=== PATIENT | female | born 1945 | race Caucasian/White ===

== ENCOUNTER 2019-02-10 21:28 | Emergency (ER) | payer MEDICARE ==
[2019-02-10] MEDS ORDERED: MORPHINE SULFATE 4 MG INJ IV ONE (22:24)
[2019-02-10] MEDS ORDERED: Zofran 4 MG/2 ML VIAL IV ONE (22:24)
[2019-02-10] MEDS ORDERED: Sodium Chloride 0.9% 1000 ML 1,000 ML IV SCH (22:30)
[2019-02-10] MEDS ORDERED: MORPHINE SULFATE 4 MG INJ ONE (22:33)
[2019-02-10] MEDS ORDERED: Zofran 4 MG/2 ML VIAL ONE (22:33)
[2019-02-10] MEDS ORDERED: Sodium Chloride 0.9% 1000 ML 1,000 ML ONE (22:33)
[2019-02-10 22:35] LABS: BASOPHIL % 0.2 % (0.0-0.4); Basophil (Absolute #) 0.03 (0-0.4); Eosinophil % 2.4 % (0.00-5.0); Eosinophil (Absolute #) 0.36 (0-0.5); Granulocyte Absolute (ANC) 10.72 (1.4-6.9); Hematocrit 45.7 % (35-47); Hemoglobin 14.4 gm/dl (12.0-16.0); Lymphocyte (Absolute #) 3.01 (1.0-4.6); Lymphocytes % 19.7 % (24.0-44.0); Mean Cell Volume 96.8 fl (78-100); Mean Corpuscular Hemoglobin 30.5 pg (26-32); Mean Corpuscular Hgb Concent. 31.5 g/dl (32-36); Mean Platelet Volume 10.9 fl (6-9.5); Monocyte (Absolute #) 1.17 (0.0-1.3); Monocytes % 7.7 % (0.0-12.0); Platelet Count 269 K/mm3 (150-450); Red Blood Count 4.72 M/mm3 (4.1-5.4); Red Cell Distribution Width 14.3 % (11.5-14.0); White Blood Count 15.3 K/mm3 (4.0-10.5)
[2019-02-10 22:39] LABS: AMYLASE 250 U/L (30-110); LIPASE 429 U/L (23-300)
--- NOTE | 2019-02-10 23:09 | ERPHSYRPT ---
- History of Present Illness Time Seen by Provider: 02/10/19 22:00 Historian: patient Exam Limitations: clinical condition Patient Subjective Stated Complaint: pt states she has been having lt side abd pain for approx 1 week. pain has been worse tonight. states in last 5 days she has had one hard, small bm yesterday. Triage Nursing Assessment: pt alert and oriented, asnwers questions approp. pt ambulatory with dteady gait noted. respirations nonlabored with lungs cta. abd soft and nontender to light palpation. bowel sounds hypo. Physician History: PATIENT COMPLAINS OF ACUTE ONSET OF LEFT SIDED ABDOMINAL PAIN X 24 HOURS ASSOCIATED EMESIS X 6 EPISODES. DENIES DIARRHEA, FEVER, CHILLS, URINARY SYMPTOMS , DIARRHEA. HAS CONSTIPATION X 3 DAYS. Timing/Duration: day(s) Activities at Onset: none Quality: sharpness, stabbing Abdominal Pain Onset Location: LUQ, suprapubic Pain Radiation: no radiation Severity of Pain-Max: moderate Severity of Pain-Current: moderate Modifying Factors: Improves With: eating Associated Symptoms: nausea, vomiting Previous symptoms: no prior history Allergies/Adverse Reactions: cephalexin [From Keflex] Allergy (Verified 02/10/19 21:59) Penicillins Allergy (Verified 02/10/19 21:59) Hives Home Medications: Alendronate Sodium 70 mg [Fosamax 70 MG] 70 mg PO Q7D@0600 04/21/14 [ History] Aspirin 81 gm Chew [Baby Aspirin 81 mg Chew] 81 mg PO UD 04/21/14 [History ] Lansoprazole [Prevacid] 15 mg PO DAILY 04/21/14 [History] Pravastatin Sodium 20 mg PO DAILY 04/21/14 [History] Tramadol HCl 50 mg [Ultram 50 mg] 50 mg PO Q6HPRN 04/21/14 [History] Metoclopramide HCl 10 mg [Reglan 10 MG] 10 mg PO HS 01/08/16 [History] Hx Tetanus, Diphtheria Vaccination/Date Given: No (unknown) Hx Influenza Vaccination/Date Given: No Hx Pneumococcal Vaccination/Date Given: No Immunizations Up to Date: No - Review of Systems Constitutional: No Fever, No Chills Eyes: No Symptoms Ears, Nose, & Throat: No Symptoms Respiratory: No Symptoms, No Cough, No Dyspnea Cardiac: No Symptoms, No Chest Pain, No Edema, No Syncope Abdominal/Gastrointestinal: Abdominal Pain, Nausea, Vomiting, No Diarrhea Genitourinary Symptoms: No Symptoms, No Dysuria Musculoskeletal: No Symptoms, No Back Pain, No Neck Pain Skin: No Rash Neurological: No Dizziness, No Focal Weakness, No Sensory Changes Psychological: No Symptoms Endocrine: No Symptoms All Other Systems: Reviewed and Negative - Past Medical History Pertinent Past Medical History: Yes Neurological History: No Pertinent History ENT History: Other Cardiac History: High Cholesterol, Hypertension Respiratory History: No Pertinent History Endocrine Medical History: No Pertinent History Musculoskeletal History: Arthritis, Fractures, Osteoporosis GI Medical History: GERD History: No Pertinent History Psycho-Social History: Depression Female Reproductive Disorders: No Pertinent History Other Medical History: [place], ear drainage, tubes in ears, hiatal hernia - Past Surgical History Past Surgical History: Yes Neuro Surgical History: No Pertinent History Cardiac: No Pertinent History Respiratory: No Pertinent History Gastrointestinal: No Pertinent History Genitourinary: No Pertinent History Musculoskeletal: Orthopedic Surgery Female Surgical History: Section, Tubal Ligation Other Surgical History: right wrist repair - Social History Smoking Status: Former smoker Exposure to second hand smoke: No Drug Use: none Patient Lives Alone: No - Nursing Vital Signs Nursing Vital Signs: Initial Vital Signs Temperature 98.0 F 02/10/19 21:41 Pulse Rate 66 02/10/19 21:41 Respiratory Rate 20 02/10/19 21:41 Blood Pressure 133/65 02/10/19 21:41 O2 Sat by Pulse Oximetry 98 02/10/19 21:41 Pain Scale Pain Intensity 0 - Physical Exam General Appearance: no apparent distress, alert Eye Exam: PERRL/EOMI, eyes nml inspection Ears, Nose, Throat Exam: normal ENT inspection, pharynx normal, moist mucous membranes Neck Exam: normal inspection, non-tender, supple, full range of motion Respiratory Exam: normal breath sounds, lungs clear, No respiratory distress Cardiovascular Exam: regular rate/rhythm, normal heart sounds Gastrointestinal/Abdomen Exam: soft, normal bowel sounds, No tenderness (LEFT LOWER QUADRANT TENDERNESS, NO GUARDING), No mass Rectal Exam: normal exam, normal rectal tone Back Exam: normal inspection, normal range of motion, No CVA tenderness, No vertebral tenderness Extremity Exam: normal inspection, normal range of motion, pelvis stable Neurologic Exam: alert, oriented x 3, cooperative, normal mood/affect, nml cerebellar function, sensation nml, No motor deficits Skin Exam: normal color, warm, dry SpO2 Interpretation: normal SpO2: 94 - CT Exams Abdomen/Pelvis CT Interpretation: Tele-radiologist Report, Normal Appendix (NO ACUTE ABNORMALITY, NO CALIFIED STONES OR DUCTAL DILATION, NO HYDRONEPHROSIS, BILATERAL CYST OF KIDNEYS. COLONIC DIVERTICULOSIS WITHOUT CT EVIDENCE OF DIVERTICULITIS) Ordered Tests: Active Orders 24 hr Category Date Time Status Clean Catch Urine Specimen STAT Care 02/10/19 22:24 Active Enema STAT Care 02/11/19 01:35 Ordered IV Insertion STAT Care 02/10/19 22:24 Active ABDOMEN AND PELVIS W/0 CONTRAS [CT] Stat Exams 02/10/19 22:25 Taken AMYLASE Stat Lab 02/10/19 22:34 Completed BLOOD CULTURE Stat Lab 02/10/19 23:09 Received CBC W DIFF Stat Lab 02/10/19 22:34 Completed CMP Stat Lab 02/10/19 23:44 Completed CULTURE,URINE Stat Lab 02/10/19 23:19 Received LIPASE Stat Lab 02/10/19 22:34 Completed Occult Blood, Other Screening Stat Lab 02/10/19 22:25 Ordered UA W/RFX UR CULTURE Stat Lab 02/10/19 23:19 Completed Medication Summary Generic Name Dose Route Start Last Admin Trade Name Freq PRN Reason Stop Dose Admin Sodium Chloride 1,000 mls @ 200 mls/hr 02/10/19 22:30 02/10/19 22:39 Sodium Chloride 0.9% 1000 Ml IV 03/12/19 22:29 200 mls/hr .Q5H MATTHIEU Administration Discontinued Medications Generic Name Dose Route Start Last Admin Trade Name Freq PRN Reason Stop Dose Admin Morphine Sulfate 4 mg 02/10/19 22:24 02/10/19 22:39 Morphine Sulfate 4 Mg Inj IV 02/10/19 22:25 4 mg STAT ONE Administration Morphine Sulfate Confirm 02/10/19 22:33 Morphine Sulfate 4 Mg Inj Administered 02/10/19 22:34 Dose 4 mg .ROUTE .STK-MED ONE Ondansetron HCl 4 mg 02/10/19 22:24 02/10/19 22:39 Zofran 4 Mg/2 Ml Vial IV 03/20/19 22:25 4 mg STAT ONE Administration Ondansetron HCl Confirm 02/10/19 22:33 Zofran 4 Mg/2 Ml Vial Administered 02/10/19 22:34 Dose 4 mg .ROUTE .STK-MED ONE Lab/Rad Data: Laboratory Result Diagrams 02/10/19 22:34 02/10/19 23:44 Laboratory Results 02/10/19 02/10/19 02/10/19 Range/Units 23:44 23:19 22:34 WBC (4.0-10.5) K/mm3 RBC (4.1-5.4) M/mm3 Hgb (12.0-16.0) gm/dl Hct (35-47) % MCV (78-100) fl MCH (26-32) pg MCHC (32-36) g/dl RDW (11.5-14.0) % Plt Count (150-450) K/mm3 MPV (6-9.5) fl Gran % (36.0-66.0) % Eos # (Auto) (0-0.5) Absolute Lymphs (auto) (1.0-4.6) Absolute Monos (auto) (0.0-1.3) Lymphocytes % (24.0-44.0) % Monocytes % (0.0-12.0) % Eosinophils % (0.00-5.0) % Basophils % (0.0-0.4) % Absolute Granulocytes (1.4-6.9) Basophils # (0-0.4) Sodium 142 (137-145) mmol/L Potassium 3.8 (3.5-5.1) mmol/L Chloride 104 (98-107) mmol/L Carbon Dioxide 26 (22-30) mmol/L Anion Gap 15.3 H (5-15) MEQ/L BUN 21 H (7-17) mg/dL Creatinine 1.24 H (0.52-1.04) mg/dL Estimated GFR 44.7 ML/MIN Glucose 132 H (74-106) mg/dL Calcium 9.2 (8.4-10.2) mg/dL Total Bilirubin 0.40 (0.2-1.3) mg/dL AST 28 (14-36) U/L ALT 19 (0-35) U/L Alkaline Phosphatase 72 (38-126) U/L Serum Total Protein 7.2 (6.3-8.2) g/dL Albumin 4.0 (3.5-5.0) g/dL Amylase 250 H (30-110) U/L Lipase 429 H (23-300) U/L Urine Color YELLOW (YELLOW) Urine Appearance CLEAR (CLEAR) Urine pH 6.0 (5-6) Ur Specific [place] 1.008 (1.005-1.025) Urine Protein NEGATIVE (Negative) Urine Ketones NEGATIVE (NEGATIVE) Urine Blood SMALL (0-5) [place]/ul Urine Nitrite NEGATIVE (NEGATIVE) Urine Bilirubin NEGATIVE (NEGATIVE) Urine Urobilinogen NEGATIVE (0-1) mg/dL Ur Leukocyte Esterase SMALL (NEGATIVE) Urine WBC (Auto) 3-5 (0-5) /HPF Urine RBC (Auto) 0-2 (0-2) /HPF U Epithel Cells (Auto) NONE (FEW) /HPF Urine Bacteria (Auto) NONE (NEGATIVE) /HPF Urine Mucus (Auto) SLIGHT (NEGATIVE) /HPF Urine Culture Reflexed YES (NO) Urine Glucose NEGATIVE (NEGATIVE) mg/dL 02/10/19 Range/Units 22:34 WBC 15.3 H (4.0-10.5) K/mm3 RBC 4.72 (4.1-5.4) M/mm3 Hgb 14.4 (12.0-16.0) gm/dl Hct 45.7 (35-47) % MCV 96.8 (78-100) fl MCH 30.5 (26-32) pg MCHC 31.5 L (32-36) g/dl RDW 14.3 H (11.5-14.0) % Plt Count 269 (150-450) K/mm3 MPV 10.9 H (6-9.5) fl Gran % 70.0 H (36.0-66.0) % Eos # (Auto) 0.36 (0-0.5) Absolute Lymphs (auto) 3.01 (1.0-4.6) Absolute Monos (auto) 1.17 (0.0-1.3) Lymphocytes % 19.7 L (24.0-44.0) % Monocytes % 7.7 (0.0-12.0) % Eosinophils % 2.4 (0.00-5.0) % Basophils % 0.2 (0.0-0.4) % Absolute Granulocytes 10.72 H (1.4-6.9) Basophils # 0.03 (0-0.4) Sodium (137-145) mmol/L Potassium (3.5-5.1) mmol/L Chloride (98-107) mmol/L Carbon Dioxide (22-30) mmol/L Anion Gap (5-15) MEQ/L BUN (7-17) mg/dL Creatinine (0.52-1.04) mg/dL Estimated GFR ML/MIN Glucose (74-106) mg/dL Calcium (8.4-10.2) mg/dL Total Bilirubin (0.2-1.3) mg/dL AST (14-36) U/L ALT (0-35) U/L Alkaline Phosphatase (38-126) U/L Serum Total Protein (6.3-8.2) g/dL Albumin (3.5-5.0) g/dL Amylase (30-110) U/L Lipase (23-300) U/L Urine Color (YELLOW) Urine Appearance (CLEAR) Urine pH (5-6) Ur Specific [place] (1.005-1.025) Urine Protein (Negative) Urine Ketones (NEGATIVE) Urine Blood (0-5) [place]/ul Urine Nitrite (NEGATIVE) Urine Bilirubin (NEGATIVE) Urine Urobilinogen (0-1) mg/dL Ur Leukocyte Esterase (NEGATIVE) Urine WBC (Auto) (0-5) /HPF Urine RBC (Auto) (0-2) /HPF U Epithel Cells (Auto) (FEW) /HPF Urine Bacteria (Auto) (NEGATIVE) /HPF Urine Mucus (Auto) (NEGATIVE) /HPF Urine Culture Reflexed (NO) Urine Glucose (NEGATIVE) mg/dL - Progress Progress: improved Progress Note: 02/10/19 23:58 IV NORMAL SALINE 200ML/HR, ZOFRAN 4MG, MORPHINE 4MG IV, PATIENT ADMINISTERED ZOFRAN 4MG, AND ZOFRAN 4MG 02/11/19 01:43 ADMINISTERED SOAP EMEMA Counseled pt/family regarding: lab results, diagnosis, need for follow-up, rad results - Departure Time of Disposition: 02:30 Departure Disposition: Home Clinical Impression: ACUTE EMESIS, CONSTIPATION Condition: Stable Critical Care Time: No Critical Care Time(excluding separately billable procedures): 30-74 minutes Referrals: KAYLA RODAS MD [Primary Care Provider] - Additional Instructions: CONTINUE ALL CURRENT MEDICATIONS. FOLLOWUP WITH YOUR PRIMARY CARE PROVIDER IN 1 WEEK. ZOFRAN 4MG EVERY 6 HOURS NEEDED FOR NAUSEA. RETURN TO EMERGENCY FOR ONSET OF ABDOMINAL PAIN OR VOMITING. Prescriptions: Ondansetron ODT 4 MG [Zofran Odt 4 mg] 4 mg PO Q6H PRN PRN #10 tab.rapdis PRN Reason: Vomiting
[2019-02-10 23:31] LABS: Appearance CLEAR (CLEAR); Bilirubin NEGATIVE (NEGATIVE); Blood SMALL Ery/ul (0-5); Glucose NEGATIVE (NEGATIVE); Ketones NEGATIVE (NEGATIVE); Leukocyte Esterase SMALL (NEGATIVE); Mucus SLIGHT /HPF (NEGATIVE); Nitrite NEGATIVE (NEGATIVE); Protein,Urine Dip NEGATIVE (Negative); RBC 0-2 /HPF (0-2); Specific Gravity 1.008 (1.005-1.025); Urobilinogen NEGATIVE mg/dL (0-1)
[2019-02-10 23:54] LABS: ANION GAP 15.3 MEQ/L (5-15); BILIRUBIN,TOTAL 0.4 mg/dL (0.2-1.3); Calcium 9.2 mg/dL (8.4-10.2); Creatinine 1 1.24 mg/dL (0.52-1.04); Potassium 3.8 mmol/L (3.5-5.1); Total Protein 7.2 g/dL (6.3-8.2)
[2019-02-11 03:14] VITALS: BP 124/72; PULSE 64; O2SAT 96
--- NOTE | 2019-02-11 09:27 | XRAY ---
Indication: Left flank pain. Constipation. Elevated WBC, lipase, and amylase. History GERD. Multiple contiguous axial images obtained through the abdomen and pelvis without contrast as ordered. Comparison: None Lung bases hyperinflated with minimal atelectasis/scarring. No infiltrate or effusion. Heart is not enlarged. Large hiatal hernia with partial intrathoracic stomach. Stomach is distended with food/fluid. Noncontrasted stomach and bowel loops appear nonobstructed. Normal appendix. Scattered sigmoid diverticulosis without diverticulitis. A few bilateral renal cysts, largest right lower pole measuring 3 cm. No free fluid/air. Remaining liver, gallbladder, pancreas, spleen, adrenal glands, kidneys, ureters, bladder, and uterus appear unremarkable for noncontrast exam. Mild aortoiliac calcifications without AAA. Osseous structures intact with mild/moderate multilevel degenerative spondylosis and moderate levorotoscoliosis centered at L3. No ventral or inguinal hernias. Impression: 1. Large hiatal hernia with partial intrathoracic stomach. 2. Incidental sigmoid diverticulosis, bilateral renal cysts, degenerative spondylosis, and scoliosis. 3. Remaining CT abdomen/pelvis without contrast exam is negative. Comment: Preliminary interpretation was made by [facility]. No critical discrepancy. CT DI 14.92
== END 2019-02-11 03:21 | disposition home or self-care (01) ==
LOC: ED 21:28
DX: R11.10 Vomiting, unspecified (principal); K59.00 Constipation, unspecified; I10 Essential (primary) hypertension; Z79.899 Other long term (current) drug therapy; K21.9 Gastro-esophageal reflux disease without esophagitis; M81.0 Age-related osteoporosis without current pathological fracture; F32.9 Major depressive disorder, single episode, unspecified
CPT/HCPCS: 36000; 36415; 74176; 80053; 81001; 82150; 82272; 83690; 85025; 87040; 87086; 96360; 96361; 96374; 96375; 99284; J2270; J2405

== ENCOUNTER 2019-05-05 12:11 | Day surgery (SDC) | payer MEDICARE ==
[2019-05-05] MEDS ORDERED: Lactated Ringers 1,000 ML IV ONE (12:15)
[2019-05-05] MEDS ORDERED: Lactated Ringers 1,000 ML IV SCH (12:30)
[2019-05-05 15:23] VITALS: O2SAT 98
[2019-05-05 16:06] VITALS: BP 150/93; PULSE 57
--- NOTE | 2019-05-06 09:16 | OP ---
SURGERY DATE: 05/05/19 SURGERY TIME: 0 PREOPERATIVE DIAGNOSIS: 1. CHANGE IN BOWEL HABITS. 2. HISTORY OF POLYPS. POSTOPERATIVE DIAGNOSIS: 1. CHANGE IN BOWEL HABITS. 2. HISTORY OF POLYPS. 3. NORMAL COLONOSCOPY. PROCEDURE: 1. Colonoscopy to terminal ileum. SURGEON: Dr. Rakesh Palma. ANESTHESIA: MAC. SPECIMENS: None. COMPLICATIONS: None. ESTIMATED BLOOD LOSS: None. FINDINGS: Normal exam to terminal ileum with a few small diverticulum. PATIENT PRESENTATION: This patient presents with a recent change in her bowel habits with severe constipation. She also has a history of colon polyps. After discussing risks/benefits of colonoscopy, the patient wishes to proceed. DESCRIPTION OF PROCEDURE: The patient was brought to the endoscopy suite. Placed in the left lateral decubitus position. Placed under MAC anesthesia. Rectal exam was performed without any abnormality except for 1 small external hemorrhoid. The scope was gently advanced to the rectum. The scope was slowly advanced to the cecum. The appendiceal orifice and ileocecal valve were clearly identified. The bowel prep was quite good. The bowel was intubated. The terminal ileum appeared normal. The scope was then slowly withdrawn. The scope was withdrawn to the rectum. Retroflexion performed. Scope straightened. Rectum desufflated. Scope withdrawn. Patient was recovered and taken to PACU in stable condition. Plans for next colonoscopy in 5 years unless symptoms develop with her history of polyps.
== END 2019-05-05 16:10 | disposition home or self-care (01) ==
LOC: SDC 12:11
PROVIDERS: ATTEND Surgery
DX: K59.00 Constipation, unspecified (principal); K64.4 Residual hemorrhoidal skin tags; Z86.010 Personal history of colon polyps

== ENCOUNTER 2020-03-13 17:16 | Emergency (ER) | payer MEDICARE ==
--- NOTE | 2020-03-13 17:20 | ERPHSYRPT ---
- History of Present Illness Source: patient Exam Limitations: no limitations Timing/Duration: yesterday Severity: moderate Associated Symptoms: fever, No nausea, No vomiting, No abdominal pain, No shortness of breath, No chest pain Hx Tetanus, Diphtheria Vaccination/Date Given: No (unknown) Hx Influenza Vaccination/Date Given: No Hx Pneumococcal Vaccination/Date Given: No <DANIEL GARCIA - Last Filed: 03/13/20 19:08> <SHELLIE CUADRA - Last Filed: 03/13/20 21:17> - History of Present Illness Time Seen by Provider: 03/13/20 17:20 Physician History: This is a 75-year-old white female who has a history of hypertension and osteopenia who presents with anterior left lower extremity redness with pain. In addition, patient states that she has had a cough for a month. She was also noticed to have a low-grade fever today. Patient is a patient of Dr. Vargas. She was sent here for evaluation of her left lower extremity and management of her complaints. Denies chest pain. She denies shortness of breath. Patient denies nausea vomiting diarrhea. (DANIEL GARCIA) Allergies/Adverse Reactions: cephalexin [From Keflex] Allergy (Verified 04/14/19 13:01) Penicillins Allergy (Verified 04/14/19 13:01) Hives Home Medications: Alendronate Sodium 70 mg [Fosamax 70 MG] 70 mg PO Q7D@0600 04/21/14 [ History] Aspirin 81 gm Chew [Baby Aspirin 81 mg Chew] 81 mg PO UD 04/21/14 [History ] Pravastatin Sodium 20 mg PO DAILY 04/21/14 [History] Tramadol HCl 50 mg [Ultram 50 mg] 50 mg PO Q6HPRN 04/21/14 [History] Aspirin 81 gm Chew [Baby Aspirin 81 mg Chew] 81 mg PO UD 04/14/19 [History ] Docusate Sodium [Stool Softener] 100 mg PO DAILY 04/14/19 [History] Lisinopril 20 mg [Zestril 20 MG] 20 mg PO HS 04/14/19 [History] Multivit-Minerals/Folic/Ginkgo [One Daily For Women 50+ Adv Tb] 1 each PO DAILY 04/14/19 [History] Oxybutynin Chloride Xl 5 mg [Ditropan XL 5 MG] 5 mg PO DAILY 04/14/19 [ History] PANTOPRAZOLE 40 mg Tablet [Protonix 40MG Tablet] 40 mg PO BID 04/14/19 [ History] Travel Risk - International Travel Have you traveled outside of the country in past 3 weeks: No Have you or anyone close to you been diagnosed with or: No Do your reside in a community with a known COVID-19 case?: Yes If Yes where:: [facility] - Coronavirus Screening Has patient experienced Coronavirus symptoms: No <DANIEL GARCIA - Last Filed: 03/13/20 19:08> - Review of Systems Constitutional: Fever Eyes: No Symptoms Ears, Nose, & Throat: No Symptoms Respiratory: Cough (Mild cough for a month) Cardiac: No Symptoms Abdominal/Gastrointestinal: No Symptoms Genitourinary Symptoms: No Symptoms Musculoskeletal: No Symptoms Skin: No Symptoms Neurological: No Symptoms Psychological: No Symptoms Endocrine: No Symptoms Hematologic/Lymphatic: No Symptoms Immunological/Allergic: No Symptoms All Other Systems: Reviewed and Negative <DANIEL GARCIA - Last Filed: 03/13/20 19:08> - Past Medical History Pertinent Past Medical History: Yes Neurological History: No Pertinent History ENT History: Other Cardiac History: High Cholesterol, Hypertension Respiratory History: No Pertinent History Endocrine Medical History: No Pertinent History Musculoskeletal History: Arthritis, Fractures, Osteoporosis GI Medical History: GERD History: No Pertinent History Psycho-Social History: Depression Female Reproductive Disorders: No Pertinent History Other Medical History: [place], hiatal hernia - Past Surgical History Past Surgical History: Yes Neuro Surgical History: No Pertinent History Cardiac: No Pertinent History Respiratory: No Pertinent History Gastrointestinal: No Pertinent History Genitourinary: No Pertinent History Musculoskeletal: Orthopedic Surgery Female Surgical History: Section, Tubal Ligation Other Surgical History: right wrist repair. ear tubes- recontruction of inner ear - Social History Smoking Status: Former smoker Exposure to second hand smoke: No Drug Use: none Patient Lives Alone: No <DANIEL GARCIA - Last Filed: 03/13/20 19:08> - Physical Exam General Appearance: no apparent distress, alert, anxiety Eye Exam: PERRL/EOMI, eyes nml inspection Ears, Nose, Throat Exam: normal ENT inspection, moist mucous membranes Neck Exam: normal inspection, non-tender, supple, full range of motion Respiratory Exam: normal breath sounds, lungs clear, airway intact, No chest tenderness, No respiratory distress Cardiovascular Exam: regular rate/rhythm, normal heart sounds, normal peripheral pulses Gastrointestinal/Abdomen Exam: soft, normal bowel sounds, No tenderness Rectal Exam: not done Back Exam: normal inspection, normal range of motion, No CVA tenderness, No vertebral tenderness Extremity Exam: normal range of motion, pelvis stable, tenderness (Anterior left lower extremity along and around tibia there is redness warmth and tenderness. There is normal palpable pedal pulses on the left.) Neurologic Exam: alert, oriented x 3, cooperative, ccie II-XII nml as tested, normal mood/affect, nml cerebellar function, nml station & gait Skin Exam: warm, dry, other (See above. Cellulitis left lower extremity.) Lymphatic Exam: No adenopathy SpO2 Interpretation: borderline oxygenation O2 Delivery: Room Air <DANIEL GARCIA - Last Filed: 03/13/20 19:08> - Nursing Vital Signs Nursing Vital Signs: Initial Vital Signs Temperature 99.5 F 03/13/20 17:16 Pulse Rate 88 03/13/20 17:16 Respiratory Rate 18 03/13/20 17:16 Blood Pressure 113/63 03/13/20 17:16 O2 Sat by Pulse Oximetry 94 L 03/13/20 17:16 Pain Scale Pain Intensity 8 Ordered Tests: Active Orders 24 hr Category Date Time Status IV Insertion STAT Care 03/13/20 17:44 Active CHEST 1 VIEW (PORTABLE) Stat Exams 03/13/20 17:54 Taken CHEST WITH CONTRAST [CT] Stat Exams 03/13/20 18:56 Taken VENOUS UNILAT/LIMITED EXTREMIT [US] Stat Exams 03/13/20 18:58 Taken BLOOD CULTURE Stat Lab 03/13/20 18:15 Received CBC W DIFF Stat Lab 03/13/20 18:00 Completed CMP Stat Lab 03/13/20 18:00 Completed CULTURE,URINE Stat Lab 03/13/20 19:00 Received D-DIMER QUANTITATIVE Stat Lab 03/13/20 18:00 Completed Lactic Acid Stat Lab 03/13/20 18:00 Completed UA W/RFX UR CULTURE Stat Lab 03/13/20 19:00 Completed Medication Summary Discontinued Medications Generic Name Dose Route Start Last Admin Trade Name Luther PRN Reason Stop Dose Admin Sodium Chloride 1,000 mls @ 999 mls/hr 03/13/20 17:44 03/13/20 18:59 Sodium Chloride 0.9% 1000 Ml IV 03/13/20 18:44 Infused .Q1H1M STA Infusion Sodium Chloride Confirm 03/13/20 17:48 Sodium Chloride 0.9% 1000 Ml Administered 03/13/20 17:49 Dose 1,000 mls @ ud .ROUTE .STK-MED ONE Lab/Rad Data: Laboratory Result Diagrams 03/13/20 18:00 03/13/20 18:00 Laboratory Results 03/13/20 03/13/20 03/13/20 Range/Units 19:00 18:10 18:00 WBC (4.0-10.5) K/mm3 RBC (4.1-5.4) M/mm3 Hgb (12.0-16.0) gm/dl Hct (35-47) % MCV (78-100) fl MCH (26-32) pg MCHC (32-36) g/dl RDW (11.5-14.0) % Plt Count (150-450) K/mm3 MPV (7.5-11.0) fl Gran % (36.0-66.0) % Eos # (Auto) (0-0.5) Absolute Lymphs (auto) (1.0-4.6) Absolute Monos (auto) (0.0-1.3) Lymphocytes % (24.0-44.0) % Monocytes % (0.0-12.0) % Eosinophils % (0.00-5.0) % Basophils % (0.0-0.4) % Absolute Granulocytes (1.4-6.9) Basophils # (0-0.4) D-Dimer 1096 H* (215-500) ng/mL Sodium (137-145) mmol/L Potassium (3.5-5.1) mmol/L Chloride (98-107) mmol/L Carbon Dioxide (22-30) mmol/L Anion Gap (5-15) MEQ/L BUN (7-17) mg/dL Creatinine (0.52-1.04) mg/dL Estimated GFR ML/MIN Glucose (74-106) mg/dL Lactic Acid (0.4-2.0) Calcium (8.4-10.2) mg/dL Total Bilirubin (0.2-1.3) mg/dL AST (14-36) U/L ALT (0-35) U/L Alkaline Phosphatase (38-126) U/L Serum Total Protein (6.3-8.2) g/dL Albumin (3.5-5.0) g/dL Urine Color YELLOW (YELLOW) Urine Appearance CLEAR (CLEAR) Urine pH 8.0 (5-6) Ur Specific [place] 1.003 (1.005-1.025) Urine Protein NEGATIVE (Negative) Urine Ketones NEGATIVE (NEGATIVE) Urine Blood SMALL (0-5) [place]/ul Urine Nitrite NEGATIVE (NEGATIVE) Urine Bilirubin NEGATIVE (NEGATIVE) Urine Urobilinogen NEGATIVE (0-1) mg/dL Ur Leukocyte Esterase TRACE (NEGATIVE) Urine WBC (Auto) 11-15 (0-5) /HPF Urine RBC (Auto) 0-2 (0-2) /HPF U Epithel Cells (Auto) RARE (FEW) /HPF Urine Bacteria (Auto) NONE (NEGATIVE) /HPF Urine Culture Reflexed YES (NO) Urine Glucose NEGATIVE (NEGATIVE) mg/dL Influenza Type A Ag NEGATIVE (NEGATIVE) Influenza Type B Ag NEGATIVE (NEGATIVE) RSV (PCR) NEGATIVE (Negative) 03/13/20 03/13/20 03/13/20 Range/Units 18:00 18:00 18:00 WBC 14.0 H (4.0-10.5) K/mm3 RBC 4.21 (4.1-5.4) M/mm3 Hgb 12.4 (12.0-16.0) gm/dl Hct 39.7 (35-47) % MCV 94.3 (78-100) fl MCH 29.5 (26-32) pg MCHC 31.2 L (32-36) g/dl RDW 14.9 H (11.5-14.0) % Plt Count 260 (150-450) K/mm3 MPV 10.8 (7.5-11.0) fl Gran % 77.8 H (36.0-66.0) % Eos # (Auto) 0.35 (0-0.5) Absolute Lymphs (auto) 1.55 (1.0-4.6) Absolute Monos (auto) 1.16 (0.0-1.3) Lymphocytes % 11.1 L (24.0-44.0) % Monocytes % 8.3 (0.0-12.0) % Eosinophils % 2.5 (0.00-5.0) % Basophils % 0.3 (0.0-0.4) % Absolute Granulocytes 10.88 H (1.4-6.9) Basophils # 0.04 (0-0.4) D-Dimer (215-500) ng/mL Sodium 138 (137-145) mmol/L Potassium 4.1 (3.5-5.1) mmol/L Chloride 106 (98-107) mmol/L Carbon Dioxide 24 (22-30) mmol/L Anion Gap 12.6 (5-15) MEQ/L BUN 13 (7-17) mg/dL Creatinine 1.04 (0.52-1.04) mg/dL Estimated GFR 54.6 ML/MIN Glucose 102 (74-106) mg/dL Lactic Acid 1.1 (0.4-2.0) Calcium 9.0 (8.4-10.2) mg/dL Total Bilirubin 0.60 (0.2-1.3) mg/dL AST 27 (14-36) U/L ALT 11 (0-35) U/L Alkaline Phosphatase 98 (38-126) U/L Serum Total Protein 7.6 (6.3-8.2) g/dL Albumin 3.7 (3.5-5.0) g/dL Urine Color (YELLOW) Urine Appearance (CLEAR) Urine pH (5-6) Ur Specific [place] (1.005-1.025) Urine Protein (Negative) Urine Ketones (NEGATIVE) Urine Blood (0-5) [place]/ul Urine Nitrite (NEGATIVE) Urine Bilirubin (NEGATIVE) Urine Urobilinogen (0-1) mg/dL Ur Leukocyte Esterase (NEGATIVE) Urine WBC (Auto) (0-5) /HPF Urine RBC (Auto) (0-2) /HPF U Epithel Cells (Auto) (FEW) /HPF Urine Bacteria (Auto) (NEGATIVE) /HPF Urine Culture Reflexed (NO) Urine Glucose (NEGATIVE) mg/dL Influenza Type A Ag (NEGATIVE) Influenza Type B Ag (NEGATIVE) RSV (PCR) (Negative) <DANIEL GARCIA - Last Filed: 03/13/20 19:08> - Progress Counseled pt/family regarding: lab results, diagnosis, need for follow-up <SHELLIE CUADRA - Last Filed: 03/13/20 21:17> - Progress Progress Note: 03/13/20 19:08 I reviewed the patient history and condition and work-up pending with Dr. Shellie Cuadra at the time of shift change. He assuming care of this patient. (DANIEL GARCIA) 03/13/20 21:16 CTA of the chest was negative for pulmonary embolism. Left lower leg Doppler was negative. At this point time patient appears to have a cellulitis of the left lower leg. Will place patient on clindamycin going home. She will need a wound recheck with her PCP in 2 to 3 days. She should return here for any new or changing symptoms before then. (SHELLIE CUADRA) <DANIEL GARCIA - Last Filed: 03/13/20 19:08> - Departure Departure Disposition: Home Critical Care Time: No <SHELLIE CUADRA - Last Filed: 03/13/20 21:17> - Departure Clinical Impression: Cellulitis of left lower leg Condition: Stable Referrals: KAYLA VARGAS MD [Primary Care Provider] - Instructions: Contusion (DC) Prescriptions: Clindamycin HCl 150 mg [Cleocin 150 mg Capsule] 2 cap PO QID #56 capsule
[2020-03-13] MEDS ORDERED: Sodium Chloride 0.9% 1000 ML 1,000 ML IV STA (17:44)
[2020-03-13] MEDS ORDERED: Sodium Chloride 0.9% 1000 ML 1,000 ML ONE (17:48)
[2020-03-13 18:23] LABS: Absolute Neutrophil Ct (ANC) 10.88 (1.4-6.9); BASOPHIL % 0.3 % (0.0-0.4); Basophil (Absolute #) 0.04 (0-0.4); Eosinophil % 2.5 % (0.00-5.0); Eosinophil (Absolute #) 0.35 (0-0.5); Hematocrit 39.7 % (35-47); Hemoglobin 12.4 gm/dl (12.0-16.0); Lymphocyte (Absolute #) 1.55 (1.0-4.6); Lymphocytes % 11.1 % (24.0-44.0); Mean Cell Volume 94.3 fl (78-100); Mean Corpuscular Hemoglobin 29.5 pg (26-32); Mean Corpuscular Hgb Concent. 31.2 g/dl (32-36); Mean Platelet Volume 10.8 fl (7.5-11.0); Monocyte (Absolute #) 1.16 (0.0-1.3); Monocytes % 8.3 % (0.0-12.0); Neutrophil % 77.8 % (36.0-66.0); Platelet Count 260 K/mm3 (150-450); Red Blood Count 4.21 M/mm3 (4.1-5.4); Red Cell Distribution Width 14.9 % (11.5-14.0)
[2020-03-13 18:39] LABS: ALBUMIN 3.7 g/dL (3.5-5.0); ANION GAP 12.6 MEQ/L (5-15); BILIRUBIN,TOTAL 0.6 mg/dL (0.2-1.3); Creatinine 1 1.04 mg/dL (0.52-1.04); Potassium 4.1 mmol/L (3.5-5.1); Total Protein 7.6 g/dL (6.3-8.2)
[2020-03-13 18:46] LABS: INFLUENZA A NEGATIVE (NEGATIVE); INFLUENZA B NEGATIVE (NEGATIVE); RESPIRATORY SYNCTIAL VIRUS NEGATIVE (Negative)
[2020-03-13 19:36] LABS: Appearance CLEAR (CLEAR); Bilirubin NEGATIVE (NEGATIVE); Blood SMALL Ery/ul (0-5); Epithelial Cells RARE /HPF (FEW); Glucose NEGATIVE (NEGATIVE); Ketones NEGATIVE (NEGATIVE); Leukocyte Esterase TRACE (NEGATIVE); Nitrite NEGATIVE (NEGATIVE); Protein,Urine Dip NEGATIVE (Negative); RBC 0-2 /HPF (0-2); Specific Gravity 1.003 (1.005-1.025); Urobilinogen NEGATIVE mg/dL (0-1)
[2020-03-13 21:54] VITALS: BP 110/74; PULSE 85; O2SAT 96
--- NOTE | 2020-03-14 08:37 | XRAY ---
Indication: Left leg erythema and swelling. Two-dimensional sonogram and color Doppler imaging of the major venous vessels of the left leg was performed. Comparison: None No thrombus seen in the examined deep venous vessels of the left leg including greater saphenous vein. Veins demonstrate normal compressibility. Venous waveforms are normal with and without augmentation. Impression: Left leg negative for DVT. Comment: Preliminary report was given.
--- NOTE | 2020-03-14 08:49 | XRAY ---
Indication: Cough 1 month. Low-grade fever. Comparison: September 18, 2017. Portable chest less inflated with new left base infiltrate/atelectasis and enlarging large hiatal hernia. Remaining heart and lungs unremarkable. Bony thorax intact again with mild osteopenia, degenerative changes, and scoliosis.
--- NOTE | 2020-03-14 09:58 | XRAY ---
Indication: Cough and elevated d-dimer. Left leg cellulitis. Multiple contiguous axial images obtained through the chest using 80 cc Isovue 370 contrast and PE protocol. Comparison: None There is good opacification of the pulmonary arteries to include the lobar and segmental branches. No filling defect/pulmonary embolus. Heart is not enlarged. Aorta is mildly arteriosclerotic without aneurysm/dissection. No pathologic mediastinal/hilar lymphadenopathy. Large hiatal hernia with intrathoracic stomach. Examination of the lung parenchyma demonstrates left lower lobe subsegmental atelectasis and tiny bilateral lower lobe calcified granulomas. Elsewhere no suspicious pulmonary mass, infiltrate, or effusion. Bony thorax intact with minimal degenerative changes throughout the spine. Limited upper abdomen demonstrates partially visualized 1.8 cm left mid to lower renal cyst. Impression: 1. Negative pulmonary embolus. 2. Left lower lobe subsegmental atelectasis and evidence for old granulomatous disease. 3. Large hiatal hernia with intrathoracic stomach. 4. Incompletely visualized left renal cyst.
== END 2020-03-13 22:07 | disposition home or self-care (01) ==
LOC: ED 17:16
DX: L03.116 Cellulitis of left lower limb (principal); I10 Essential (primary) hypertension; M85.80 Other specified disorders of bone density and structure, unspecified site; R05 Cough; R50.9 Fever, unspecified; Z79.899 Other long term (current) drug therapy; E78.00 Pure hypercholesterolemia, unspecified; M81.0 Age-related osteoporosis without current pathological fracture; K21.9 Gastro-esophageal reflux disease without esophagitis; F32.9 Major depressive disorder, single episode, unspecified; K44.9 Diaphragmatic hernia without obstruction or gangrene
CPT/HCPCS: 36000; 36415; 71045; 71260; 80053; 81001; 83605; 85025; 85379; 87040; 87086; 87631; 93971; 96360; 99284

== ENCOUNTER 2020-08-02 13:17 | Day surgery (SDC) | payer MEDICARE ==
[~2020-08-02 13:17] MED LIST: DIPRIVAN 200 MG/20 ML IV ONE; Ketamine HCl 50 MG/ML ONE
[2020-08-02] MEDS ORDERED: Depo-Medrol 40 MG/ML IM ONE (13:18)
[2020-08-02] MEDS ORDERED: Sodium Chloride 0.9(Preservative Free) 10 ML IJ ONE (13:18)
--- NOTE | 2020-08-02 14:58 | XRAY ---
Indication: Left L4-S1 transforaminal SAE. Intraoperative fluoroscopy was provided for 23 seconds. 3 digital spot images submitted for interpretation demonstrates posterior needle tips projecting over the expected left L4 and L5 nerve roots. Small amount of contrast injected for needle tip placement. Correlate with intraoperative findings/report.
[2020-08-02] MEDS ORDERED: Lactated Ringers 1,000 ML IV ONE (15:12)
--- NOTE | 2020-08-03 10:15 | XRAY ---
23 seconds fluoroscopy time in surgery for left L4-S1 transforaminal SAE.
== END 2020-08-02 14:55 | disposition home or self-care (01) ==
LOC: SDC-PAIN 13:17
PROVIDERS: ATTEND Psychiatry & Neurology Pain Medicine
DX: M54.16 Radiculopathy, lumbar region (principal); I10 Essential (primary) hypertension; J43.9 Emphysema, unspecified; K21.9 Gastro-esophageal reflux disease without esophagitis; K44.9 Diaphragmatic hernia without obstruction or gangrene; M81.0 Age-related osteoporosis without current pathological fracture; Z79.899 Other long term (current) drug therapy
CPT/HCPCS: 64483; 64484; 72100; 77003; 99100; J1030; J2704; Q9966

== ENCOUNTER 2020-11-06 09:46 | Observation (INO) | payer MEDICARE ==
[2020-11-06 11:14] LABS: Absolute Neutrophil Ct (ANC) 6.39 (1.4-6.9); BASOPHIL % 0.7 % (0.0-0.4); Basophil (Absolute #) 0.07 (0-0.4); Eosinophil % 7.2 % (0.00-5.0); Eosinophil (Absolute #) 0.69 (0-0.5); Hematocrit 34.2 % (35-47); Hemoglobin 10.4 gm/dl (12.0-16.0); Lymphocyte (Absolute #) 1.42 (1.0-4.6); Lymphocytes % 14.9 % (24.0-44.0); Mean Cell Volume 100.3 fl (78-100); Mean Corpuscular Hemoglobin 30.5 pg (26-32); Mean Corpuscular Hgb Concent. 30.4 g/dl (32-36); Mean Platelet Volume 10.3 fl (7.5-11.0); Monocyte (Absolute #) 0.97 (0.0-1.3); Monocytes % 10.2 % (0.0-12.0); Platelet Count 371 K/mm3 (150-450); Red Blood Count 3.41 M/mm3 (4.1-5.4); Red Cell Distribution Width 14.5 % (11.5-14.0); White Blood Count 9.5 K/mm3 (4.0-10.5)
[2020-11-06 11:30] LABS: ALBUMIN 3.5 g/dL (3.5-5.0); ALKALINE PHOSPHATASE 94 U/L (38-126); ANION GAP 8.4 MEQ/L (5-15); BLOOD UREA NITROGEN 11 mg/dL (7-17); CHLORIDE 105 mmol/L (98-107); Carbon Dioxide 28 mmol/L (22-30); Creatinine 1 1.17 mg/dL (0.52-1.04); EST GLOMERULAR FILTRATION RATE 47.7 ML/MIN; Glucose 97 mg/dL (74-106); NT PRO BNP 441 pg/mL (0-1800); Potassium 3.9 mmol/L (3.5-5.1); SGOT/AST 20 U/L (14-36); SGPT/ALT 9 U/L (0-35); SODIUM 138 mmol/L (137-145)
[2020-11-06] MEDS ORDERED: Protonix 40MG Tablet PO SCH (11:30)
[2020-11-06] MEDS ORDERED: Zestril 20 MG PO SCH ×3 (11:30→22:00)
[2020-11-06] MEDS: DUONEB 0.5-3 MG/3 ml Neb IH SCH ×2 (11:39→17:10)
--- NOTE | 2020-11-06 12:09 | XRAY ---
Exam: AP upright portable chest film from 11/06/2020. Comparison: AP portable chest film from 03/13/2020. Indication: 75-year-old female with acute exacerbation of COPD; hypoxia. Findings: The transverse heart size appears within normal limits. A calcified, mildly tortuous descending thoracic aorta is seen. There is at least a moderate sized hiatal hernia seen behind the stomach representing no change. I again note mild elevation/eventration of the left hemidiaphragm as compared to the right hemidiaphragm. I believe there is some minimal obliquely oriented linear atelectasis at the left lung base. This is less pronounced as compared to 03/13/2020. The remainder of the lung lugo appears clear. No central vascular congestion is noted. No pneumothorax or pleural fluid is seen. I again note degenerative changes within the visualized spine with mild mid thoracic dextroscoliosis. The bones are demineralized. Impression: 1. Mild elevation/eventration of left hemidiaphragm with minimal streaky linear atelectasis at the left lung base. The atelectasis appears less pronounced as compared to 03/13/2020. 2. Moderately large retrocardiac hiatal hernia representing no change. 3. No air space infiltrates or other acute cardiopulmonary disease is seen.
[2020-11-06 12:17] LABS: TROPONIN < 0.012 ng/mL (0.000-0.034)
[2020-11-06] MEDS: ECOTRIN 81 MG PO SCH (13:25)
[2020-11-06] MEDS: solu-MEDROL 125 MG IV SCH ×2 (13:45→17:52)
[2020-11-06] MEDS: Levofloxacin 500MG/100ML D5W 500 MG/100 ML BAG IV SCH (13:45)
[2020-11-06] MEDS ORDERED: BABY ASPIRIN 81 MG CHEW PO SCH (14:15)
[2020-11-06] MEDS ORDERED: Ditropan XL 5 MG PO SCH ×2 (14:30→22:00)
[2020-11-06] MEDS: Sodium Chloride 0.9% 10 ML FLUSH Syringe IV PRN (15:09)
[2020-11-06] MEDS: ULTRAM 50 MG PO SCH ×2 (15:23→21:20)
--- NOTE | 2020-11-06 15:47 | XRAY ---
Exam: CT of the chest with IV contrast, per PE protocol from 11/06/2020. Total DLP: 384.18 mGy-cm Comparison: AP upright portable chest film from 11/06/[address] of the chest with IV contrast from 03/13/2020. Indication: 75-year-old female with elevated d-dimer of 1985 (normal range from 215-500 ng per ml), low oxygen saturation, cough for 6 weeks, acute exacerbation of COPD, rule out pulmonary embolus. Technique: Post-IV contrast axial images were obtained through the chest during automated injection of 80 cc of Isovue-370 contrast material, per PE protocol. Reconstructed coronal and sagittal images were created and reviewed. In addition, some axial MIP images were obtained as well. The pulmonary arteries are well-opacified and reveal no filling defects to suggest clot/emboli. No thoracic aortic dissection or aneurysm is seen. Some small probably reactive lymph nodes are seen within the bao representing no change. The heart size is normal without pericardial effusion. There is a large hiatal hernia containing much of the stomach and measuring 9.6 cm in width. This appears to be somewhat larger than that seen on 03/13/2021 when it measured 7.8 cm in width. I again see mild streaky subsegmental atelectasis at the posterior left lung base within the left lower lobe. This appears less pronounced as compared to 03/13/2020. I believe there are some mild emphysematous changes within both upper lung lugo. No air space infiltrates or dense consolidations are seen. There is no pneumothorax or pleural effusion. No suspicious soft tissue lung nodules are seen. The visualized upper abdomen reveals no significant abnormality. The adrenal glands appear unremarkable. Impression: 1. I see no evidence of pulmonary embolus. 2. Prior streaky subsegmental atelectasis at the posterior left lung base within the left lower lobe appears less pronounced as compared to 03/13/2020. No other acute lung disease is seen. 3. I believe there are mild emphysematous changes seen within both upper lung lugo. 4. I again see a large retrocardiac hiatal hernia which appears somewhat larger as compared to 03/13/2020.
[2020-11-06] MEDS: Protonix 40MG Tablet PO SCH (21:07)
[2020-11-06] MEDS: Sodium Chloride 0.9% 10 ML FLUSH Syringe IV SCH (21:08)
[2020-11-06] MEDS ORDERED: ZOCOR 20MG PO SCH (22:00)
[2020-11-06] MEDS ORDERED: Miralax Powder 17GM PACKET PO SCH (22:00)
[2020-11-07] MEDS: solu-MEDROL 125 MG IV SCH ×3 (00:05→12:30)
[2020-11-07] MEDS: DUONEB 0.5-3 MG/3 ml Neb IH SCH ×3 (01:35→13:04)
[2020-11-07] MEDS: Sodium Chloride 0.9% 10 ML FLUSH Syringe IV SCH (06:11)
[2020-11-07] MEDS: Sodium Chloride 0.9% 10 ML FLUSH Syringe IV PRN (06:12)
--- NOTE | 2020-11-07 08:22 | PCM.SSS ---
History of Present Illness - Chief Complaint Chief Complaint: ae copd,hypoxia History of Present Illness: is a 75 year old female who was admitted from the office with persistent cough, shortness of breath and hypoxia. she has had good oxygenation on room air since admission, was put on oxygen overnight but cough is imporved. d-dimer was elevated but CTA was negative for PE showed some scarring and large hiatal hernia, no pneumonia. treated with nebs, steroids and antibiotics, leroy ears to have a component of copd/reactive airway, on no MELODY at home, unable to actuate hfa with her hands with arthritis and tremor etc. - Review of Systems Constitutional: No Fever, No Chills Respiratory: Cough, Short Of Breath Cardiac: No Chest Pain, No Edema, No Syncope Abdominal/Gastrointestinal: No Abdominal Pain, No Nausea, No Vomiting, No Diarrhea Genitourinary Symptoms: No Dysuria Musculoskeletal: No Back Pain, No Neck Pain Skin: No Rash Neurological: No Dizziness, No Focal Weakness, No Sensory Changes All Other Systems: Reviewed and Negative Medications & Allergies Home Medications: Home Medication List Alendronate Sodium 70 mg [Fosamax 70 MG] 70 mg PO Q7D@0600 04/21/14 [History Confirmed 11/06/20] Pravastatin Sodium 20 mg PO DAILY 04/21/14 [History Confirmed 11/06/20] Tramadol HCl 50 mg [Ultram 50 mg] 50 mg PO Q6HPRN 04/21/14 [History Confirmed 11/06/20] Aspirin 81 gm Chew [Baby Aspirin 81 mg Chew] 81 mg PO UD 04/14/19 [History Confirmed 11/06/20] Lisinopril 20 mg [Zestril 20 MG] 20 mg PO HS 04/14/19 [History Confirmed 11/06/20] Multivit-Minerals/Folic/Ginkgo [One Daily For Women 50+ Adv Tb] 1 each PO DAILY 04/14/19 [History Confirmed 11/06/20] Oxybutynin Chloride Xl 5 mg [Ditropan XL 5 MG] 5 mg PO DAILY 04/14/19 [History Confirmed 11/06/20] PANTOPRAZOLE 40 mg Tablet [Protonix 40MG Tablet] 40 mg PO BID 04/14/19 [History Confirmed 11/06/20] Polyethylene Glycol 3350 17 gm [Miralax Powder 17GM PACKET] 17 gm PO HS 11/06/20 [History Confirmed 11/06/20] Albuterol/Ipratropium 3ml Neb* [DUONEB 0.5-3 MG/3 ml Neb] 3 ml IH Q6HRT #100 ampul.neb 11/07/20 [Rx] Levofloxacin [Levaquin] 500 mg PO DAILY #7 tablet 11/07/20 [Rx] Nebulizer and Compressor [[place] Choice Nebulizer] 1 each UD #1 each 11/07/20 [Rx] Prednisone 20 mg [Deltasone 20 mg] 20 mg PO UD #18 tablet 11/07/20 [Rx] Allergies/Adverse Reactions: Allergies Allergy/AdvReac Type Severity Reaction Status Date / Time cephalexin [From Keflex] Allergy Verified 04/14/19 13:01 Penicillins Allergy Hives Verified 04/14/19 13:01 - Past Medical History Past Medical History: Yes Neurological History: No Pertinent History ENT History: Other Cardiac History: High Cholesterol, Hypertension Respiratory History: No Pertinent History Endocrine Medical History: No Pertinent History Musculoskelatal History: Arthritis, Fractures, Osteoporosis GI Medical History: GERD History: No Pertinent History Pyscho-Social History: Depression Reproductive Disorders: No Pertinent History Comment: REDDING, hiatal hernia - Female History Hx Last Menstrual Period: post menopausal Are you now?: No - Past Surgical History Past Surgical History: Yes Neuro Surgical History: No Pertinent History Cardiac History: No Pertinent History Respiratory Surgery: No Pertinent History GI Surgical History: No Pertinent History Genitourinary Surgical Hx: No Pertinent History Musculskeletal Surgical Hx: Orthopedic Surgery Female Surgical History: Section, Tubal Ligation Other Surgical History: right wrist repair. ear tubes- recontruction of inner ear R - Social History Smoking Status: Former smoker Exposure to second hand smoke: No Alcohol: None Drug Use: none - Physical Exam Vital Signs: Vital Signs - 24 hr Temp Pulse Resp BP Pulse Ox 11/07/20 07:33 98.5 F 64 18 111/56 95 11/07/20 05:27 68 20 92 L 11/07/20 04:00 98.1 F 62 20 113/56 94 L 12/15/20 01:35 70 16 92 L 11/07/20 00:00 98.6 F 74 24 117/56 96 11/06/20 23:10 90 L 11/06/20 20:00 99.2 F 78 16 113/53 93 L 11/06/20 17:18 66 18 93 L 11/06/20 16:00 99.5 F 93 H 22 129/60 100 11/06/20 12:00 99.3 F 60 18 119/58 100 11/06/20 11:40 57 L 16 98 11/06/20 10:48 99.3 F 60 18 119/58 General Appearance: no apparent distress Neurologic Exam: alert, oriented x 3, cooperative Respiratory Exam: prolonged expirations, rhonchi Cardiovascular Exam: regular rate/rhythm, normal heart sounds, normal peripheral pulses Gastrointestinal/Abdomen Exam: soft, normal bowel sounds, No tenderness, No mass Extremity Exam: normal inspection, normal range of motion, pelvis stable Results - Labs Lab/Micro Results: Lab Results-Last 24 Hours 11/06/20 11/06/20 11/06/20 Range/Units 10:45 10:55 10:55 WBC 9.5 (4.0-10.5) K/mm3 RBC 3.41 L (4.1-5.4) M/mm3 Hgb 10.4 L (12.0-16.0) gm/dl Hct 34.2 L (35-47) % MCV 100.3 H (78-100) fl MCH 30.5 (26-32) pg MCHC 30.4 L (32-36) g/dl RDW 14.5 H (11.5-14.0) % Plt Count 371 (150-450) K/mm3 MPV 10.3 (7.5-11.0) fl Gran % 67.0 H (36.0-66.0) % Eos # (Auto) 0.69 H (0-0.5) Absolute Lymphs (auto) 1.42 (1.0-4.6) Absolute Monos (auto) 0.97 (0.0-1.3) Lymphocytes % 14.9 L (24.0-44.0) % Monocytes % 10.2 (0.0-12.0) % Eosinophils % 7.2 H (0.00-5.0) % Basophils % 0.7 (0.0-0.4) % Absolute Granulocytes 6.39 (1.4-6.9) Basophils # 0.07 (0-0.4) D-Dimer (215-500) ng/mL Sodium 138 (137-145) mmol/L Potassium 3.9 (3.5-5.1) mmol/L Chloride 105 (98-107) mmol/L Carbon Dioxide 28 (22-30) mmol/L Anion Gap 8.4 (5-15) MEQ/L BUN 11 (7-17) mg/dL Creatinine 1.17 H (0.52-1.04) mg/dL Estimated GFR 47.7 ML/MIN Glucose 97 (74-106) mg/dL Lactic Acid 1.1 (0.4-2.0) Calcium 9.0 (8.4-10.2) mg/dL Total Bilirubin 0.20 (0.2-1.3) mg/dL AST 20 (14-36) U/L ALT 9 (0-35) U/L Alkaline Phosphatase 94 (38-126) U/L Troponin I < 0.012 (0.000-0.034) ng/mL NT-Pro-B Natriuret Pep 441 (0-1800) pg/mL Serum Total Protein 7.0 (6.3-8.2) g/dL Albumin 3.5 (3.5-5.0) g/dL 11/06/20 Range/Units 10:55 WBC (4.0-10.5) K/mm3 RBC (4.1-5.4) M/mm3 Hgb (12.0-16.0) gm/dl Hct (35-47) % MCV (78-100) fl MCH (26-32) pg MCHC (32-36) g/dl RDW (11.5-14.0) % Plt Count (150-450) K/mm3 MPV (7.5-11.0) fl Gran % (36.0-66.0) % Eos # (Auto) (0-0.5) Absolute Lymphs (auto) (1.0-4.6) Absolute Monos (auto) (0.0-1.3) Lymphocytes % (24.0-44.0) % Monocytes % (0.0-12.0) % Eosinophils % (0.00-5.0) % Basophils % (0.0-0.4) % Absolute Granulocytes (1.4-6.9) Basophils # (0-0.4) D-Dimer 1985 H* (215-500) ng/mL Sodium (137-145) mmol/L Potassium (3.5-5.1) mmol/L Chloride (98-107) mmol/L Carbon Dioxide (22-30) mmol/L Anion Gap (5-15) MEQ/L BUN (7-17) mg/dL Creatinine (0.52-1.04) mg/dL Estimated GFR ML/MIN Glucose (74-106) mg/dL Lactic Acid (0.4-2.0) Calcium (8.4-10.2) mg/dL Total Bilirubin (0.2-1.3) mg/dL AST (14-36) U/L ALT (0-35) U/L Alkaline Phosphatase (38-126) U/L Troponin I (0.000-0.034) ng/mL NT-Pro-B Natriuret Pep (0-1800) pg/mL Serum Total Protein (6.3-8.2) g/dL Albumin (3.5-5.0) g/dL - Radiology Impressions Radiology Exams & Impressions: Radiology Procedures Category Date Time Status CHEST 1 VIEW (PORTABLE) Routine Exams 11/06/20 10:45 Completed CHEST WITH CONTRAST [CT] Stat Exams 11/06/20 13:17 Completed - Other Procedures and Tests Respiratory Therapy 11/06/20 10:45 Oxygen Nasal Cannula 2 lpm 11/06/20 11:40 Respiratory Therapy Assessment DAILY 11/06/20 11:45 Incentive Spirometry TID Assessment/Plan (1) COPD with acute exacerbation Current Visit: Yes Status: Acute Code(s): J44.1 - CHRONIC OBSTRUCTIVE PULMONARY DISEASE W (ACUTE) EXACERBATION (2) Hypoxia Current Visit: Yes Status: Acute Code(s): R09.02 - HYPOXEMIA Hospital Summary - Vitals & Intake/Output Vital Signs: Vital Signs Temperature 98.5 F 11/07/20 07:33 Pulse Rate 64 11/07/20 07:33 Respiratory Rate 18 11/07/20 07:33 Blood Pressure 111/56 11/07/20 07:33 O2 Sat by Pulse Oximetry 95 11/07/20 07:33 Intake & Output: Intake & Output 11/04/20 11/05/20 11/06/20 11/07/20 11:59 11:59 11:59 11:59 Intake Total 1230 Output Total 800 Balance 430 Weight 60.3 kg - Lab Result Diagrams: 11/06/20 10:55 11/06/20 10:55 Lab Results-Last 24 Hrs: Lab Results-Last 24 Hours 11/06/20 11/06/20 11/06/20 Range/Units 10:45 10:55 10:55 WBC 9.5 (4.0-10.5) K/mm3 RBC 3.41 L (4.1-5.4) M/mm3 Hgb 10.4 L (12.0-16.0) gm/dl Hct 34.2 L (35-47) % MCV 100.3 H (78-100) fl MCH 30.5 (26-32) pg MCHC 30.4 L (32-36) g/dl RDW 14.5 H (11.5-14.0) % Plt Count 371 (150-450) K/mm3 MPV 10.3 (7.5-11.0) fl Gran % 67.0 H (36.0-66.0) % Eos # (Auto) 0.69 H (0-0.5) Absolute Lymphs (auto) 1.42 (1.0-4.6) Absolute Monos (auto) 0.97 (0.0-1.3) Lymphocytes % 14.9 L (24.0-44.0) % Monocytes % 10.2 (0.0-12.0) % Eosinophils % 7.2 H (0.00-5.0) % Basophils % 0.7 (0.0-0.4) % Absolute Granulocytes 6.39 (1.4-6.9) Basophils # 0.07 (0-0.4) D-Dimer (215-500) ng/mL Sodium 138 (137-145) mmol/L Potassium 3.9 (3.5-5.1) mmol/L Chloride 105 (98-107) mmol/L Carbon Dioxide 28 (22-30) mmol/L Anion Gap 8.4 (5-15) MEQ/L BUN 11 (7-17) mg/dL Creatinine 1.17 H (0.52-1.04) mg/dL Estimated GFR 47.7 ML/MIN Glucose 97 (74-106) mg/dL Lactic Acid 1.1 (0.4-2.0) Calcium 9.0 (8.4-10.2) mg/dL Total Bilirubin 0.20 (0.2-1.3) mg/dL AST 20 (14-36) U/L ALT 9 (0-35) U/L Alkaline Phosphatase 94 (38-126) U/L Troponin I < 0.012 (0.000-0.034) ng/mL NT-Pro-B Natriuret Pep 441 (0-1800) pg/mL Serum Total Protein 7.0 (6.3-8.2) g/dL Albumin 3.5 (3.5-5.0) g/dL 11/06/20 Range/Units 10:55 WBC (4.0-10.5) K/mm3 RBC (4.1-5.4) M/mm3 Hgb (12.0-16.0) gm/dl Hct (35-47) % MCV (78-100) fl MCH (26-32) pg MCHC (32-36) g/dl RDW (11.5-14.0) % Plt Count (150-450) K/mm3 MPV (7.5-11.0) fl Gran % (36.0-66.0) % Eos # (Auto) (0-0.5) Absolute Lymphs (auto) (1.0-4.6) Absolute Monos (auto) (0.0-1.3) Lymphocytes % (24.0-44.0) % Monocytes % (0.0-12.0) % Eosinophils % (0.00-5.0) % Basophils % (0.0-0.4) % Absolute Granulocytes (1.4-6.9) Basophils # (0-0.4) D-Dimer 1985 H* (215-500) ng/mL Sodium (137-145) mmol/L Potassium (3.5-5.1) mmol/L Chloride (98-107) mmol/L Carbon Dioxide (22-30) mmol/L Anion Gap (5-15) MEQ/L BUN (7-17) mg/dL Creatinine (0.52-1.04) mg/dL Estimated GFR ML/MIN Glucose (74-106) mg/dL Lactic Acid (0.4-2.0) Calcium (8.4-10.2) mg/dL Total Bilirubin (0.2-1.3) mg/dL AST (14-36) U/L ALT (0-35) U/L Alkaline Phosphatase (38-126) U/L Troponin I (0.000-0.034) ng/mL NT-Pro-B Natriuret Pep (0-1800) pg/mL Serum Total Protein (6.3-8.2) g/dL Albumin (3.5-5.0) g/dL - Radiology Exams Ordered Rad Exams-Entire Visit: Radiology Procedures Category Date Time Status CHEST 1 VIEW (PORTABLE) Routine Exams 11/06/20 10:45 Completed CHEST WITH CONTRAST [CT] Stat Exams 11/06/20 13:17 Completed - Procedures and Test Procedures and Tests throughout Hospitalization: Therapy Orders & Screens 11/06/20 10:45 Oxygen Nasal Cannula 2 lpm Comment: to keep sats >92% Diagnosis: AE COPD,HYPOXIA Respiratory Nebulizer Q6H Comment: duonebs 2.5/0.5mg inh Diagnosis: ae copd,hypoxia 11/06/20 11:40 Respiratory Therapy Assessment DAILY Comment: Diagnosis: ae copd,hypoxia 11/06/20 11:45 Incentive Spirometry TID Comment: Diagnosis: ae copd,hypoxia - Discharge Disposition: Home, Self-Care Condition: Stable Prescriptions: New Nebulizer and Compressor [[place] Choice Nebulizer] 1 each UD #1 each Prednisone 20 mg [Deltasone 20 mg] 20 mg PO UD #18 tablet Albuterol/Ipratropium 3ml Neb* [DUONEB 0.5-3 MG/3 ml Neb] 3 ml IH Q6HRT #100 ampul.neb Levofloxacin [Levaquin] 500 mg PO DAILY #7 tablet Continue Tramadol HCl 50 mg [Ultram 50 mg] 50 mg PO Q6HPRN Alendronate Sodium 70 mg [Fosamax 70 MG] 70 mg PO Q7D@0600 Pravastatin Sodium 20 mg PO DAILY Lisinopril 20 mg [Zestril 20 MG] 20 mg PO HS Aspirin 81 gm Chew [Baby Aspirin 81 mg Chew] 81 mg PO UD Oxybutynin Chloride Xl 5 mg [Ditropan XL 5 MG] 5 mg PO DAILY PANTOPRAZOLE 40 mg Tablet [Protonix 40MG Tablet] 40 mg PO BID Multivit-Minerals/Folic/Ginkgo [One Daily For Women 50+ Adv Tb] 1 each PO DAILY Polyethylene Glycol 3350 17 gm [Miralax Powder 17GM PACKET] 17 gm PO HS Follow up with: KAYLA RODAS MD [Primary Care Provider] - 1 Week
[2020-11-07] MEDS: ECOTRIN 81 MG PO SCH (09:03)
[2020-11-07] MEDS: Protonix 40MG Tablet PO SCH (09:03)
[2020-11-07] MEDS ORDERED: NON-FORMULARY ITEM (Pravastatin Sodium [Pravastatin Sodium] 20 MG) PO SCH (10:00)
[2020-11-07] MEDS: Levofloxacin 500MG/100ML D5W 500 MG/100 ML BAG IV SCH (12:30)
[2020-11-07] MEDS: ULTRAM 50 MG PO SCH (13:23)
[2020-11-07 14:57] VITALS: BP 130/63; PULSE 95; O2SAT 97
== END 2020-11-07 14:47 | disposition home or self-care (01) ==
LOC: MED SURG 09:59 → INTOOBSV 09:59
PROVIDERS: ADMIT Family Medicine; ATTEND Family Medicine
DX: J44.1 Chronic obstructive pulmonary disease with (acute) exacerbation (principal); R09.02 Hypoxemia; R79.1 Abnormal coagulation profile; Z79.899 Other long term (current) drug therapy
CPT/HCPCS: 36415; 71045; 71260; 80053; 83605; 83880; 84484; 85025; 85379; 94640; 94760; 94762; G0378; J1956; J2930; A9270-GY

== ENCOUNTER 2022-05-31 13:49 | Inpatient (IN) | payer MEDICARE ==
--- NOTE | 2022-05-31 14:21 | ERPHSYRPT ---
- History of Present Illness Source: patient Exam Limitations: no limitations Patient Subjective Stated Complaint: Pt fell down her three steps when she took her dog outside and fell on her right side and back injuring herself Triage Nursing Assessment: Pt brought to the ER by her daughter, hypertensive, rates pain as 9/10, pain to medial and lower back, right side and states that it hurts her chest when she coughs which just began since the fall, pt also has bruising to her right wrist which is painful to palpatation, pulses normal, skin n/w/d, denies LOC, denies hitting head, denies any other injuries Physician History: 77 yo wf slipped on wet steps and fell injuring her R wrist/T-spine/L CVA-L flank/Mid-sternal area. Pt did not hit her head and denies NELSON/LOC. Cervical pain/Hip pain/lower extremity pain all denied. Occurred: just prior to arrival Reason for Fall: slipped (Wet steps) Injuries/Pain Location: upper extremity (R wrist), back (T-spine/L CVA) Loss of Consciousness: no loss of consciousness Quality: aching Severity of Pain-Max: moderate Severity of Pain-Current: moderate Modifying Factors: Improves With: movement Associated Symptoms (Fall): back pain, extremity injury, No abdominal pain, No confusion, No chest pain, No dizziness, No headache, No lightheadedness, No muscle spasms, No nausea, No neck pain, No ringing in ears, No seizures, No shortness of breath, No slurred speech, No trouble walking, No vomiting, No vision changes Allergies/Adverse Reactions: cephalexin [From Keflex] Allergy (Verified 05/31/22 14:06) Penicillins Allergy (Verified 05/31/22 14:06) Hives Home Medications: Pravastatin Sodium 20 mg PO DAILY 04/21/14 [History] Tramadol HCl 50 mg [Ultram 50 mg] 50 mg PO Q6HPRN 04/21/14 [History] Aspirin 81 gm Chew [Baby Aspirin 81 mg Chew] 81 mg PO UD 04/14/19 [History] Multivit-Minerals/Folic/Ginkgo [One Daily For Women 50+ Adv Tb] 1 each PO DAILY 04/14/19 [History] Oxybutynin Chloride Xl 5 mg [Ditropan XL 5 MG] 5 mg PO DAILY 04/14/19 [History] PANTOPRAZOLE 40 mg Tablet [Protonix 40MG Tablet] 40 mg PO BID 04/14/19 [History] Polyethylene Glycol 3350 17 gm [Miralax Powder 17GM PACKET] 17 gm PO HS 11/06/20 [History] Budesonide/Formoterol Fumarate [Budesonide-Formoterol 160-4.5] 2 puffs IH BID 11/30/21 [History] Hx Tetanus, Diphtheria Vaccination/Date Given: No (unknown) Hx Influenza Vaccination/Date Given: No Hx Pneumococcal Vaccination/Date Given: No Travel Risk - International Travel Have you traveled outside of the country in past 3 weeks: No - Coronavirus Screening Are you exhibiting any of the following symptoms?: No Close contact with a COVID-19 positive Pt in past 14-21 Days: No - Vaccine Status Have you recieved a Covid-19 vaccination: Yes 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: [employer] - Vaccination Dates Date of 2cond Vaccination (if applicable): [id number] - Review of Systems Constitutional: No Symptoms Eyes: No Symptoms Ears, Nose, & Throat: No Symptoms Respiratory: No Symptoms Cardiac: No Symptoms Abdominal/Gastrointestinal: No Symptoms Genitourinary Symptoms: No Symptoms Musculoskeletal: No Symptoms, Back Pain, Fall Skin: No Symptoms Neurological: No Symptoms Psychological: No Symptoms Endocrine: No Symptoms Hematologic/Lymphatic: No Symptoms Immunological/Allergic: No Symptoms - Past Medical History Pertinent Past Medical History: Yes Neurological History: No Pertinent History ENT History: Other Cardiac History: High Cholesterol Respiratory History: COPD Endocrine Medical History: No Pertinent History Musculoskeletal History: Arthritis, Fractures, Osteoporosis GI Medical History: GERD, Hernia History: Other Psycho-Social History: Depression Female Reproductive Disorders: No Pertinent History Other Medical History: [place], hiatal hernia. Frequent urination. - Past Surgical History Past Surgical History: Yes Neuro Surgical History: No Pertinent History Cardiac: No Pertinent History Respiratory: No Pertinent History Gastrointestinal: No Pertinent History Genitourinary: No Pertinent History Musculoskeletal: Orthopedic Surgery Female Surgical History: Section, Tubal Ligation Other Surgical History: right wrist repair. ear tubes- recontruction of inner ear R drum - Social History Smoking Status: Former smoker Exposure to second hand smoke: No Drug Use: none Patient Lives Alone: No Significant Family History: no pertinent family hx - Nursing Vital Signs Nursing Vital Signs: Initial Vital Signs Temperature 98.4 F 05/31/22 13:57 Pulse Rate 68 05/31/22 13:57 Blood Pressure 171/83 05/31/22 13:57 O2 Sat by Pulse Oximetry 96 05/31/22 13:57 Pain Scale Pain Intensity 0 Hypertensive - Bhupinder Coma Score Best Eye Response ([place]): (4) open spontaneously Best Verbal Response ([place]): (5) oriented Best Motor Response ([place]): (6) obeys commands [place] Total: 15 - Physical Exam General Appearance: no apparent distress Head Injury: no evidence of injury, No active bleeding Eye Exam: PERRL/EOMI, eyes nml inspection ENT Exam: airway nml, No evidence of ENT injury, No clear fluid (ears), No clear fluid (nose) Neck Exam: supple, trachea midline (C-spine NTTP) Respiratory/Chest Exam: chest tenderness (Mid-sternal TTP), normal breath sounds, No respiratory distress Cardiovascular Exam: normal heart sounds, regular rate/rhythm, normal peripheral pulses, No murmur Gastrointestinal Exam: soft, normal bowel sounds, No tenderness Back Exam: CVA tenderness (L CVA TTP), vertebral tenderness (Mid-T-spine TTP) Extremity Exam: capillary refill <3 sec, pelvis stable, other (R wrist TTP) Peripheral Pulses: carotid (R): 2+, carotid (L): 2+ Neurologic Exam: alert, oriented x 3, cooperative, house manager II-XII nml as tested, normal mood/affect, sensation nml Skin Exam: normal color, warm, dry SpO2 Interpretation: normal SpO2: 96 O2 Delivery: Room Air - Course Nursing assessment & vital signs reviewed: Yes EKG Interpreted by Me: RATE (Sinus maximo/Rate56/Normal QT-QTc/No acute ST changes) - Radiology Exams Wrist X-ray Interpretation: Discussed w/ radiologist (Old distal R radius fx) - CT Exams Chest CT Interpretation: Discussed w/radiologist (LLL pneumonia/R 11/12 nondisplaced rib fx's) Abdomen/Pelvis CT Interpretation: Discussed w/radiologist (Nondisplaced L1 transverse process fx/fecal stasis) Ordered Tests: Active Orders 24 hr Category Date Time Status Bedrest with BRP/BSC ROUTINE Activity 05/31/22 18:06 Active Code Status Order ROUTINE Care 05/31/22 18:05 Active EKG-ER Only STAT Care 05/31/22 16:10 Active Fall Protocol ROUTINE Care 05/31/22 18:06 Active IV Care Q6H Care 05/31/22 18:05 Active Intake and Output Q12H Care 05/31/22 18:[address] in Observation ROUTINE Care 05/31/22 18:05 Active Vital Signs Q4H Care 05/31/22 18:05 Active Heart-Healthy Diet Diet 05/31/22 Breakfast Active ABDOMEN AND PELVIS W/0 CONTRAS [CT] Stat Exams 05/31/22 14:14 Completed CHEST WITHOUT CONTRAST [CT] Stat Exams 05/31/22 14:42 Completed WRIST (MIN 3 VIEWS) Stat Exams 05/31/22 14:30 Completed BLOOD CULTURE Stat Lab 05/31/22 17:10 Received CBC W DIFF AM.LAB Lab 06/01/22 04:00 Ordered CBC W DIFF Stat Lab 05/31/22 16:30 Completed CMP AM.LAB Lab 06/01/22 04:00 Ordered CMP Stat Lab 05/31/22 16:30 Completed Lactic Acid Stat Lab 05/31/22 16:11 Completed TROPONIN Q3H Lab 05/31/22 16:30 Completed TROPONIN Q3H Lab 05/31/22 19:15 Ordered TROPONIN Q3H Lab 05/31/22 22:15 Ordered TROPONIN Q3H Lab 06/01/22 01:15 Ordered TROPONIN Q3H Lab 06/01/22 04:15 Ordered Incentive Spirometry TID RT 05/31/22 18:08 Active Oxygen Nasal Cannula 2 lpm RT 05/31/22 18:05 Active Transfer Order Routine Transfer 05/31/22 Ordered Medication Summary Generic Name Dose Route Start Last Admin Trade Name Freq PRN Reason Stop Dose Admin Albuterol/Ipratropium 3 ml 05/31/22 19:00 Ipratropium/Albuterol Sulfate 3 Ml Ampul.Neb IH 06/30/22 18:59 QIDRT MATTHIEU Fentanyl Citrate 25 mcg 05/31/22 18:09 Fentanyl Citrate 100 Mcg/2 Ml* Vial IV 06/05/22 18:08 Q4H PRN PRN SEVERE PAIN Sodium Chloride 1,000 mls @ 100 mls/hr 05/31/22 18:15 Sodium Chloride 0.9% 1000 Ml IV 06/30/22 18:14 .Q10H MATTHIEU Levofloxacin/Dextrose 500 mg in 100 mls @ 100 mls/hr 06/01/22 10:00 Levofloxacin 500mg/100ml D5w IV 07/01/22 09:59 Q24H10 MATTHIEU Ondansetron HCl 4 mg 05/31/22 18:05 Ondansetron Hcl 4 Mg/2 Ml Vial IV 06/30/22 18:04 Q6H PRN PRN NAUSEA/VOMITING Pantoprazole Sodium 40 mg 06/01/22 10:00 Pantoprazole 40 Mg Vial IV 07/01/22 09:59 Q24H10 MATTHIEU Discontinued Medications Generic Name Dose Route Start Last Admin Trade Name Freq PRN Reason Stop Dose Admin Fentanyl Citrate 25 mcg 05/31/22 16:11 05/31/22 16:16 Fentanyl Citrate 100 Mcg/2 Ml* Vial IV 05/31/22 16:12 25 mcg STAT ONE Administration Fentanyl Citrate Confirm 05/31/22 16:13 Fentanyl Citrate 100 Mcg/2 Ml* Vial Administered 05/31/22 16:14 Dose 100 mcg .ROUTE .STK-MED ONE Levofloxacin/Dextrose 500 mg in 100 mls @ 100 mls/hr 05/31/22 16:40 05/31/22 18:05 Levofloxacin 500mg/100ml D5w IV 05/31/22 17:39 Infused STAT STA Infusion Levofloxacin/Dextrose Confirm 05/31/22 16:53 Levofloxacin 500mg/100ml D5w Administered 05/31/22 16:54 Dose 500 mg in 100 mls @ ud IV .STK-MED ONE Ondansetron HCl 4 mg 05/31/22 16:12 05/31/22 16:16 Ondansetron Hcl 4 Mg/2 Ml Vial IV 05/31/22 16:13 4 mg STAT ONE Administration Ondansetron HCl Confirm 05/31/22 16:13 Ondansetron Hcl 4 Mg/2 Ml Vial Administered 05/31/22 16:14 Dose 4 mg .ROUTE .STK-MED ONE Lab/Rad Data: Laboratory Result Diagrams 05/31/22 16:30 05/31/22 16:30 Laboratory Results 05/31/22 05/31/22 05/31/22 Range/Units 16:30 16:30 16:30 WBC (4.0-10.5) x10^3/uL RBC (4.1-5.4) x10^6/uL Hgb (12.0-16.0) g/dL Hct (35-47) % MCV (78-100) fL MCH (26-32) pg MCHC (32-36) g/dL RDW (11.5-14.0) % Plt Count (150-450) x10^3/uL MPV (7.5-11.0) fL Gran % (36.0-66.0) % Immature Gran % (Auto) (0.00-0.4) % Nucleat RBC Rel Count (0.00-0.1) % Eos # (Auto) (0-0.5) x10^3/uL Immature Gran # (Auto) (0.00-0.03) x10^3u/L Absolute Lymphs (auto) (1.0-4.6) x10^3/uL Absolute Monos (auto) (0.0-1.3) x10^3/uL Absolute Nucleated RBC (0.00-0.01) x10^3u/L Lymphocytes % (24.0-44.0) % Monocytes % (0.0-12.0) % Eosinophils % (0.00-5.0) % Basophils % (0.0-0.4) % Absolute Granulocytes (1.4-6.9) x10^3/uL Basophils # (0-0.4) x10^3/uL Sodium 138 (137-145) mmol/L Potassium 4.3 (3.5-5.1) mmol/L Chloride 101 (98-107) mmol/L Carbon Dioxide 31 H (22-30) mmol/L Anion Gap 10.2 (5-15) MEQ/L BUN 17 (7-17) mg/dL Creatinine 1.26 H (0.52-1.04) mg/dL Estimated GFR 43.5 ML/MIN Glucose 88 (74-106) mg/dL Lactic Acid (0.4-2.0) Calcium 9.4 (8.4-10.2) mg/dL Total Bilirubin 0.50 (0.2-1.3) mg/dL AST 31 (14-36) U/L ALT 14 (0-35) U/L Alkaline Phosphatase 97 (38-126) U/L Troponin I < 0.012 (0.000-0.034) ng/mL Serum Total Protein 7.9 (6.3-8.2) g/dL Albumin 3.7 (3.5-5.0) g/dL Influenza Type A Ag NEGATIVE (NEGATIVE) Influenza Type B Ag NEGATIVE (NEGATIVE) RSV (PCR) NEGATIVE (Negative) SARS-CoV-2 (PCR) NEGATIVE (NEGATIVE) 05/31/22 05/31/22 Range/Units 16:30 16:11 WBC 15.1 H (4.0-10.5) x10^3/uL RBC 3.96 L (4.1-5.4) x10^6/uL Hgb 11.2 L (12.0-16.0) g/dL Hct 36.4 (35-47) % MCV 91.9 (78-100) fL MCH 28.3 (26-32) pg MCHC 30.8 L (32-36) g/dL RDW 15.1 H (11.5-14.0) % Plt Count 306 (150-450) x10^3/uL MPV 11.2 H (7.5-11.0) fL Gran % 81.1 H (36.0-66.0) % Immature Gran % (Auto) 0.6 H (0.00-0.4) % Nucleat RBC Rel Count 0.0 (0.00-0.1) % Eos # (Auto) 0.13 (0-0.5) x10^3/uL Immature Gran # (Auto) 0.09 H (0.00-0.03) x10^3u/L Absolute Lymphs (auto) 1.52 (1.0-4.6) x10^3/uL Absolute Monos (auto) 1.06 (0.0-1.3) x10^3/uL Absolute Nucleated RBC 0.00 (0.00-0.01) x10^3u/L Lymphocytes % 10.1 L (24.0-44.0) % Monocytes % 7.0 (0.0-12.0) % Eosinophils % 0.9 (0.00-5.0) % Basophils % 0.3 (0.0-0.4) % Absolute Granulocytes 12.27 H (1.4-6.9) x10^3/uL Basophils # 0.05 (0-0.4) x10^3/uL Sodium (137-145) mmol/L Potassium (3.5-5.1) mmol/L Chloride (98-107) mmol/L Carbon Dioxide (22-30) mmol/L Anion Gap (5-15) MEQ/L BUN (7-17) mg/dL Creatinine (0.52-1.04) mg/dL Estimated GFR ML/MIN Glucose (74-106) mg/dL Lactic Acid 0.9 (0.4-2.0) Calcium (8.4-10.2) mg/dL Total Bilirubin (0.2-1.3) mg/dL AST (14-36) U/L ALT (0-35) U/L Alkaline Phosphatase (38-126) U/L Troponin I (0.000-0.034) ng/mL Serum Total Protein (6.3-8.2) g/dL Albumin (3.5-5.0) g/dL Influenza Type A Ag (NEGATIVE) Influenza Type B Ag (NEGATIVE) RSV (PCR) (Negative) SARS-CoV-2 (PCR) (NEGATIVE) - Progress Progress: improved Progress Note: 05/31/22 17:39 Blood cultures x2 Levaquin 500mg IV Fentanyl 25mcg IV/4mg IV Zofran 05/31/22 18:[address] Levin Discussed with : Keshav Counseled pt/family regarding: lab results, diagnosis, need for follow-up, rad results - Departure Departure Disposition: Observation Clinical Impression: Lumbar transverse process fracture, Ribs, multiple fractures, Pneumonia Condition: Stable Critical Care Time: No Referrals: KAYLA RODAS MD [Primary Care Provider] - Follow up/PCP as directed
--- NOTE | 2022-05-31 14:40 | XRAY ---
Indication: Pain following fall. Comparison: None 3 view right wrist demonstrates osteopenia, old distal radius fracture, radiocarpal joint space loss, mild/moderate 1st metacarpal multangular scaphoid degenerative changes, and mild/moderate degenerative changes visualized IP joints. No acute findings.
--- NOTE | 2022-05-31 14:56 | XRAY ---
Indication: Right-sided pain following fall. Multiple contiguous axial images obtained through the chest without contrast. Comparison: March 08, 2022. Lungs remain hyperinflated with new moderate left lower lobe and lesser degree lingula consolidating/nonconsolidating airspace disease. Right lung remains clear again with incidental tiny medial right lower lobe calcified granuloma. Heart not enlarged. Aorta remains mildly arteriosclerotic. No pathologic mediastinal lymphadenopathy. Again large hiatal hernia with intrathoracic stomach. Bony thorax again demonstrates osteopenia and mild degenerative changes throughout the spine. New nondisplaced right 11/[address] abdomen/pelvis reported separately. Impression: 1. New left lower lobe and lingula consolidating/nonconsolidating airspace disease. Rule out aspiration pneumonia. 2. Again large hiatal hernia with intrathoracic stomach. 3. New nondisplaced right 11/12 rib fractures.
--- NOTE | 2022-05-31 15:00 | XRAY ---
Indication: Right-sided and low back pain following fall. Multiple contiguous axial images obtained through the abdomen and pelvis without contrast. Comparison: February 10, 2019 CT chest reported separately. Noncontrasted stomach and bowel loops nonobstructed. There is mild diffuse scattered colonic fecal debris throughout. No free fluid/air. Stable bilateral renal cysts and tiny hepatic calcified granuloma. Remaining liver, gallbladder, pancreas, spleen, adrenal glands, kidneys, ureters, bladder, and uterus are unremarkable for noncontrast exam. Again mild aortoiliac calcifications without AAA. Osseous structures again demonstrates osteopenia, mild/moderate degenerative changes throughout the spine, and moderate levorotoscoliosis centered at L3. New nondisplaced right L1 transverse process fracture. Impression: 1. Worsening mild diffuse fecal stasis. 2. New nondisplaced right L1 transverse process fracture. 3. Again bilateral renal cysts, arteriosclerotic disease, and chronic bony findings. 4. Remaining CT abdomen/pelvis without contrast exam is negative.
[2022-05-31] MEDS ORDERED: SUBLIMAZE 100 MCG/2 ML IV ONE (16:11)
[2022-05-31] MEDS ORDERED: Zofran 4 MG/2 ML VIAL IV ONE (16:12)
[2022-05-31] MEDS ORDERED: Zofran 4 MG/2 ML VIAL ONE (16:13)
[2022-05-31] MEDS ORDERED: SUBLIMAZE 100 MCG/2 ML ONE (16:13)
[2022-05-31] MEDS ORDERED: Levofloxacin 500MG/100ML D5W 500 MG/100 ML BAG IV STA (16:40)
[2022-05-31] MEDS ORDERED: Levofloxacin 500MG/100ML D5W 500 MG/100 ML BAG IV ONE (16:53)
[2022-05-31 16:58] LABS: ALBUMIN 3.7 g/dL (3.5-5.0); ANION GAP 10.2 MEQ/L (5-15); BILIRUBIN,TOTAL 0.5 mg/dL (0.2-1.3); Calcium 9.4 mg/dL (8.4-10.2); Creatinine 1 1.26 mg/dL (0.52-1.04); EST GLOMERULAR FILTRATION RATE 43.5 ML/MIN; Potassium 4.3 mmol/L (3.5-5.1); Total Protein 7.9 g/dL (6.3-8.2)
[2022-05-31 17:18] LABS: INFLUENZA A NEGATIVE (NEGATIVE); INFLUENZA B NEGATIVE (NEGATIVE); RESPIRATORY SYNCTIAL VIRUS NEGATIVE (Negative); SARS-CoV-2 Xpert Express NEGATIVE (NEGATIVE)
[2022-05-31 17:19] LABS: Absolute Neutrophil Ct (ANC) 12.27 x10^3/uL (1.4-6.9); Basophil (Absolute #) 0.05 x10^3/uL (0-0.4); Eosinophil % 0.9 % (0.00-5.0); Eosinophil (Absolute #) 0.13 x10^3/uL (0-0.5); Hematocrit 36.4 % (35-47); Hemoglobin 11.2 g/dL (12.0-16.0); Lymphocyte (Absolute #) 1.52 x10^3/uL (1.0-4.6); Lymphocytes % 10.1 % (24.0-44.0); Mean Cell Volume 91.9 fL (78-100); Mean Corpuscular Hemoglobin 28.3 pg (26-32); Mean Corpuscular Hgb Concent. 30.8 g/dL (32-36); Mean Platelet Volume 11.2 fL (7.5-11.0); Monocyte (Absolute #) 1.06 x10^3/uL (0.0-1.3); Neutrophil % 81.1 % (36.0-66.0); Platelet Count 306 x10^3/uL (150-450); Red Blood Count 3.96 x10^6/uL (4.1-5.4); Red Cell Distribution Width 15.1 % (11.5-14.0); White Blood Count 15.1 x10^3/uL (4.0-10.5)
[2022-05-31] MEDS ORDERED: Zofran 4 MG/2 ML VIAL IV PRN (18:05)
[2022-05-31] MEDS ORDERED: SUBLIMAZE 100 MCG/2 ML IV PRN (18:09)
[2022-05-31] MEDS ORDERED: DUONEB 0.5-3 MG/3 ml Neb IH SCH (19:00)
[2022-05-31] MEDS: Lidoderm Patch 5% TOP SCH (21:59)
[2022-05-31] MEDS: ULTRAM 50 MG PO PRN (21:59)
[2022-05-31] MEDS: Sodium Chloride 0.9% 1000 ML 1,000 ML IV SCH ×2 (21:59→22:13)
[2022-05-31] MEDS ORDERED: Miralax Powder 17GM PACKET PO ONE (22:45)
[2022-05-31] MEDS ORDERED: Ditropan 5 MG PO ONE (22:45)
[2022-05-31] MEDS: Hydromorphone 1 mg/ml Injection IV PRN (23:55)
[2022-06-01] MEDS: ULTRAM 50 MG PO PRN ×3 (03:54→21:38)
[2022-06-01] MEDS: Hydromorphone 1 mg/ml Injection IV PRN ×3 (03:54→16:42)
[2022-06-01 04:52] LABS: ALBUMIN 2.8 g/dL (3.5-5.0); ANION GAP 9.5 MEQ/L (5-15); BILIRUBIN,TOTAL 0.4 mg/dL (0.2-1.3); Calcium 8.4 mg/dL (8.4-10.2); Creatinine 1 1.28 mg/dL (0.52-1.04); EST GLOMERULAR FILTRATION RATE 42.8 ML/MIN; PREALBUMIN 18.66 mg/dL (17.6-36.0); Potassium 4.9 mmol/L (3.5-5.1); Total Protein 6.1 g/dL (6.3-8.2)
[2022-06-01 05:06] LABS: Absolute Neutrophil Ct (ANC) 7.06 x10^3/uL (1.4-6.9); Basophil (Absolute #) 0.04 x10^3/uL (0-0.4); Eosinophil % 1.9 % (0.00-5.0); Eosinophil (Absolute #) 0.18 x10^3/uL (0-0.5); Hematocrit 33.9 % (35-47); Hemoglobin 12.1 g/dL (12.0-16.0); Lymphocyte (Absolute #) 1.37 x10^3/uL (1.0-4.6); Lymphocytes % 14.5 % (24.0-44.0); Mean Cell Volume 92.4 fL (78-100); Mean Corpuscular Hgb Concent. 35.7 g/dL (32-36); Mean Platelet Volume 10.8 fL (7.5-11.0); Monocyte (Absolute #) 0.76 x10^3/uL (0.0-1.3); Neutrophil % 74.8 % (36.0-66.0); Platelet Count 260 x10^3/uL (150-450); Red Blood Count 3.67 x10^6/uL (4.1-5.4); Red Cell Distribution Width 15.4 % (11.5-14.0); White Blood Count 9.5 x10^3/uL (4.0-10.5)
[2022-06-01] MEDS ORDERED: DUONEB 0.5-3 MG/3 ml Neb IH SCH (07:00)
[2022-06-01] MEDS ORDERED: Sodium Chloride 0.9% 1000 ML 1,000 ML ONE (07:45)
[2022-06-01] MEDS: Advair Hfa 230/21 Mcg COMMON CANISTER IH SCH ×2 (07:56→18:45)
--- NOTE | 2022-06-01 08:16 | PCM.HP ---
History of Present Illness - Chief Complaint Chief Complaint: Pneumonia/Rib fractures/Transverse process fracture History of Present Illness: is a 77 year old female.slipped on wet steps and fell injuring her R wrist/T-spine/L CVA-L flank/Mid-sternal area. Pt did not hit her head and denies NELSON/LOC. Cervical pain/Hip pain/lower extremity pain all denied. Occurred: just prior to arrival Reason for Fall: slipped (Wet steps) Injuries/Pain Location: upper extremity (R wrist), back (T-spine/L CVA) Loss of Consciousness: no loss of consciousness Quality: aching Severity of Pain-Max: moderate Severity of Pain-Current: moderate Modifying Factors: Improves With: movement Associated Symptoms (Fall): back pain, extremity injury, No abdominal pain, No confusion, No chest pain, No dizziness, No headache, No lightheadedness, No muscle spasms, No nausea, No neck pain, No ringing in ears, No seizures, No shortness of breath, No slurred speech, No trouble walking, No vomiting, No vision changes - Review of Systems Constitutional: No Fever, No Chills Eyes: No Symptoms Ears, Nose, & Throat: No Symptoms Respiratory: Other (rib cage paain), No Cough, No Short Of Breath Cardiac: No Chest Pain, No Edema, No Syncope Abdominal/Gastrointestinal: No Abdominal Pain, No Nausea, No Vomiting, No Diarrhea Genitourinary Symptoms: No Dysuria Musculoskeletal: No Back Pain, No Neck Pain Skin: No Rash Neurological: No Dizziness, No Focal Weakness, No Sensory Changes Psychological: No Symptoms Endocrine: No Symptoms Hematologic/Lymphatic: No Symptoms Immunological/Allergic: No Symptoms Medications & Allergies Home Medications: Home Medication List Pravastatin Sodium 20 mg PO DAILY 04/21/14 [History Confirmed 05/31/22] Tramadol HCl 50 mg [Ultram 50 mg] 50 mg PO Q6HPRN 04/21/14 [History Confirmed 05/31/22] Aspirin 81 gm Chew [Baby Aspirin 81 mg Chew] 81 mg PO UD 04/14/19 [History Confirmed 05/31/22] Multivit-Minerals/Folic/Ginkgo [One Daily For Women 50+ Adv Tb] 1 each PO DAILY 04/14/19 [History Confirmed 05/31/22] PANTOPRAZOLE 40 mg Tablet [Protonix 40MG Tablet] 40 mg PO BID 04/14/19 [History Confirmed 05/31/22] Polyethylene Glycol 3350 17 gm [Miralax Powder 17GM PACKET] 17 gm PO HS 11/06/20 [History Confirmed 05/31/22] Albuterol/Ipratropium 3ml Neb* [DUONEB 0.5-3 MG/3 ml Neb] 3 ml IH Q6HRT #100 ampul.neb 11/07/20 [Rx Confirmed 05/31/22] Budesonide/Formoterol Fumarate [Budesonide-Formoterol 160-4.5] 2 puffs IH BID 11/30/21 [History Confirmed 05/31/22] Oxybutynin Chloride 5 mg PO QHS 05/31/22 [History Confirmed 05/31/22] Prednisone 10 mg [Deltasone 10 mg] 10 mg PO UD 06/01/22 [History Confirmed 06/01/22] Allergies/Adverse Reactions: Allergies Allergy/AdvReac Type Severity Reaction Status Date / Time cephalexin [From Keflex] Allergy Verified 05/31/22 22:14 Penicillins Allergy Hives Verified 05/31/22 22:14 - Past Medical History Past Medical History: Yes Neurological History: No Pertinent History ENT History: Other Cardiac History: High Cholesterol Respiratory History: COPD Endocrine Medical History: No Pertinent History Musculoskelatal History: Arthritis, Fractures, Osteoporosis GI Medical History: GERD, Hernia History: Other Pyscho-Social History: Depression Reproductive Disorders: No Pertinent History Comment: SEMINOLE, hiatal hernia. Frequent urination. - Female History Are you now?: No - Past Surgical History Past Surgical History: Yes Neuro Surgical History: No Pertinent History Cardiac History: No Pertinent History Respiratory Surgery: No Pertinent History GI Surgical History: No Pertinent History Genitourinary Surgical Hx: No Pertinent History Musculskeletal Surgical Hx: Orthopedic Surgery Female Surgical History: Section, Tubal Ligation Other Surgical History: right wrist repair. ear tubes- recontruction of inner ear R drum - Social History Smoking Status: Former smoker How long have you smoked: 46 years Exposure to second hand smoke: No Alcohol: None Drug Use: none Significant Family History: no pertinent family hx - Physical Exam Vital Signs: Vital Signs - 24 hr Temp Pulse Resp BP Pulse Ox 06/01/22 07:49 60 16 97 06/01/22 07:33 98.1 F 60 20 122/60 79 L 06/01/22 04:00 97.7 F 63 16 111/56 92 L 06/01/22 00:00 98.7 F 59 L 20 160/70 91 L 05/31/22 23:11 97.8 F 62 18 179/72 93 L 05/31/22 22:28 59 L 16 97 05/31/22 18:50 96 05/31/22 17:05 76 17 132/81 99 05/31/22 16:51 72 15 119/66 93 L 05/31/22 15:06 135 H 18 124/84 92 L 05/31/22 13:57 98.4 F 68 171/83 96 General Appearance: no apparent distress, alert Neurologic Exam: alert, oriented x 3, cooperative, normal mood/affect, nml cerebellar function, nml station & gait, sensation nml, No motor deficits Eye Exam: PERRL/EOMI, eyes nml inspection Ears, Nose, Throat Exam: normal ENT inspection, TMs normal, pharynx normal, moist mucous membranes Neck Exam: normal inspection, non-tender, supple, full range of motion Respiratory Exam: diminished breath sounds, No respiratory distress Cardiovascular Exam: regular rate/rhythm, normal heart sounds, normal peripheral pulses Gastrointestinal/Abdomen Exam: soft, normal bowel sounds, No tenderness, No mass Back Exam: normal inspection, normal range of motion, No CVA tenderness, No vertebral tenderness Extremity Exam: normal inspection, normal range of motion, pelvis stable Skin Exam: normal color, warm, dry, No rash Wound Assessment: Skin/Wound Assessment Wound/Incision Assessment Start: 05/31/22 23:32 Text: Status: Active Freq: Q6H Protocol: Document 06/01/22 07:42 AWG (Rec: 06/01/22 07:44 AWG [id number]) Wound/Incision Assessment Bilateral Thighs Wound Assessment Admission Wound Type bug bites Wound Stage Non Pressure Wound Drainage Amount None General Appearance Open to air Surrounding Tissue [employer] Wound Photo Photo Taken No Lymphatic Exam: No adenopathy Results - Labs Lab/Micro Results: Lab Results-Last 24 Hours 07/08/22 07/08/22 07/08/22 Range/Units 16:11 16:30 16:30 WBC 15.1 H (4.0-10.5) x10^3/uL RBC 3.96 L (4.1-5.4) x10^6/uL Hgb 11.2 L (12.0-16.0) g/dL Hct 36.4 (35-47) % MCV 91.9 (78-100) fL MCH 28.3 (26-32) pg MCHC 30.8 L (32-36) g/dL RDW 15.1 H (11.5-14.0) % Plt Count 306 (150-450) x10^3/uL MPV 11.2 H (7.5-11.0) fL Gran % 81.1 H (36.0-66.0) % Immature Gran % (Auto) 0.6 H (0.00-0.4) % Nucleat RBC Rel Count 0.0 (0.00-0.1) % Eos # (Auto) 0.13 (0-0.5) x10^3/uL Immature Gran # (Auto) 0.09 H (0.00-0.03) x10^3u/L Absolute Lymphs (auto) 1.52 (1.0-4.6) x10^3/uL Absolute Monos (auto) 1.06 (0.0-1.3) x10^3/uL Absolute Nucleated RBC 0.00 (0.00-0.01) x10^3u/L Lymphocytes % 10.1 L (24.0-44.0) % Monocytes % 7.0 (0.0-12.0) % Eosinophils % 0.9 (0.00-5.0) % Basophils % 0.3 (0.0-0.4) % Absolute Granulocytes 12.27 H (1.4-6.9) x10^3/uL Basophils # 0.05 (0-0.4) x10^3/uL Sodium 138 (137-145) mmol/L Potassium 4.3 (3.5-5.1) mmol/L Chloride 101 (98-107) mmol/L Carbon Dioxide 31 H (22-30) mmol/L Anion Gap 10.2 (5-15) MEQ/L BUN 17 (7-17) mg/dL Creatinine 1.26 H (0.52-1.04) mg/dL Estimated GFR 43.5 ML/MIN Glucose 88 (74-106) mg/dL Lactic Acid 0.9 (0.4-2.0) Calcium 9.4 (8.4-10.2) mg/dL Total Bilirubin 0.50 (0.2-1.3) mg/dL AST 31 (14-36) U/L ALT 14 (0-35) U/L Alkaline Phosphatase 97 (38-126) U/L Troponin I (0.000-0.034) ng/mL Serum Total Protein 7.9 (6.3-8.2) g/dL Albumin 3.7 (3.5-5.0) g/dL Prealbumin (17.6-36.0) mg/dL Influenza Type A Ag (NEGATIVE) Influenza Type B Ag (NEGATIVE) RSV (PCR) (Negative) SARS-CoV-2 (PCR) (NEGATIVE) 05/31/22 05/31/22 05/31/22 Range/Units 16:30 16:30 19:15 WBC (4.0-10.5) x10^3/uL RBC (4.1-5.4) x10^6/uL Hgb (12.0-16.0) g/dL Hct (35-47) % MCV (78-100) fL MCH (26-32) pg MCHC (32-36) g/dL RDW (11.5-14.0) % Plt Count (150-450) x10^3/uL MPV (7.5-11.0) fL Gran % (36.0-66.0) % Immature Gran % (Auto) (0.00-0.4) % Nucleat RBC Rel Count (0.00-0.1) % Eos # (Auto) (0-0.5) x10^3/uL Immature Gran # (Auto) (0.00-0.03) x10^3u/L Absolute Lymphs (auto) (1.0-4.6) x10^3/uL Absolute Monos (auto) (0.0-1.3) x10^3/uL Absolute Nucleated RBC (0.00-0.01) x10^3u/L Lymphocytes % (24.0-44.0) % Monocytes % (0.0-12.0) % Eosinophils % (0.00-5.0) % Basophils % (0.0-0.4) % Absolute Granulocytes (1.4-6.9) x10^3/uL Basophils # (0-0.4) x10^3/uL Sodium (137-145) mmol/L Potassium (3.5-5.1) mmol/L Chloride (98-107) mmol/L Carbon Dioxide (22-30) mmol/L Anion Gap (5-15) MEQ/L BUN (7-17) mg/dL Creatinine (0.52-1.04) mg/dL Estimated GFR ML/MIN Glucose (74-106) mg/dL Lactic Acid (0.4-2.0) Calcium (8.4-10.2) mg/dL Total Bilirubin (0.2-1.3) mg/dL AST (14-36) U/L ALT (0-35) U/L Alkaline Phosphatase (38-126) U/L Troponin I < 0.012 < 0.012 (0.000-0.034) ng/mL Serum Total Protein (6.3-8.2) g/dL Albumin (3.5-5.0) g/dL Prealbumin (17.6-36.0) mg/dL Influenza Type A Ag NEGATIVE (NEGATIVE) Influenza Type B Ag NEGATIVE (NEGATIVE) RSV (PCR) NEGATIVE (Negative) SARS-CoV-2 (PCR) NEGATIVE (NEGATIVE) 06/01/22 06/01/22 06/01/22 Range/Units 04:30 04:30 04:30 WBC 9.5 (4.0-10.5) x10^3/uL RBC 3.67 L (4.1-5.4) x10^6/uL Hgb 12.1 (12.0-16.0) g/dL Hct 33.9 L (35-47) % MCV 92.4 (78-100) fL MCH 33.0 H (26-32) pg MCHC 35.7 (32-36) g/dL RDW 15.4 H (11.5-14.0) % Plt Count 260 (150-450) x10^3/uL MPV 10.8 (7.5-11.0) fL Gran % 74.8 H (36.0-66.0) % Immature Gran % (Auto) 0.4 (0.00-0.4) % Nucleat RBC Rel Count 0.0 (0.00-0.1) % Eos # (Auto) 0.18 (0-0.5) x10^3/uL Immature Gran # (Auto) 0.04 H (0.00-0.03) x10^3u/L Absolute Lymphs (auto) 1.37 (1.0-4.6) x10^3/uL Absolute Monos (auto) 0.76 (0.0-1.3) x10^3/uL Absolute Nucleated RBC 0.00 (0.00-0.01) x10^3u/L Lymphocytes % 14.5 L (24.0-44.0) % Monocytes % 8.0 (0.0-12.0) % Eosinophils % 1.9 (0.00-5.0) % Basophils % 0.4 (0.0-0.4) % Absolute Granulocytes 7.06 H (1.4-6.9) x10^3/uL Basophils # 0.04 (0-0.4) x10^3/uL Sodium 140 (137-145) mmol/L Potassium 4.9 (3.5-5.1) mmol/L Chloride 106 (98-107) mmol/L Carbon Dioxide 30 (22-30) mmol/L Anion Gap 9.5 (5-15) MEQ/L BUN 14 (7-17) mg/dL Creatinine 1.28 H (0.52-1.04) mg/dL Estimated GFR 42.8 ML/MIN Glucose 90 (74-106) mg/dL Lactic Acid (0.4-2.0) Calcium 8.4 (8.4-10.2) mg/dL Total Bilirubin 0.40 (0.2-1.3) mg/dL AST 22 (14-36) U/L ALT 11 (0-35) U/L Alkaline Phosphatase 75 (38-126) U/L Troponin I < 0.012 (0.000-0.034) ng/mL Serum Total Protein 6.1 L (6.3-8.2) g/dL Albumin 2.8 L (3.5-5.0) g/dL Prealbumin 18.66 (17.6-36.0) mg/dL Influenza Type A Ag (NEGATIVE) Influenza Type B Ag (NEGATIVE) RSV (PCR) (Negative) SARS-CoV-2 (PCR) (NEGATIVE) - Radiology Impressions Radiology Exams & Impressions: Radiology Procedures Category Date Time Status ABDOMEN AND PELVIS W/0 CONTRAS [CT] Stat Exams 05/31/22 14:14 Completed CHEST WITHOUT CONTRAST [CT] Stat Exams 05/31/22 14:42 Completed WRIST (MIN 3 VIEWS) Stat Exams 05/31/22 14:30 Completed - Other Procedures and Tests Respiratory Therapy 05/31/22 18:05 Oxygen Nasal Cannula 2 lpm 05/31/22 18:08 Incentive Spirometry TID 05/31/22 22:27 Respiratory Therapy Assessment DAILY Assessment/Plan (1) Pneumonia Current Visit: Yes Status: Acute Qualifiers: Pneumonia type: due to unspecified organism Laterality: left Lung location: lower lobe of lung Qualified Code(s): J18.9 - Pneumonia, unspecified organism Code(s): J18.9 - PNEUMONIA, UNSPECIFIED ORGANISM (2) Ribs, multiple fractures Current Visit: Yes Status: Acute Qualifiers: Encounter type: initial encounter Fracture type: closed Laterality: right Qualified Code(s): S22.41XA - Multiple fractures of ribs, right side, initial encounter for closed fracture Code(s): S22.49XA - MULTIPLE FRACTURES OF RIBS, UNSP SIDE, INIT FOR CLOS FX
[2022-06-01] MEDS ORDERED: PROTONIX 40 MG IV IV SCH (10:00)
[2022-06-01] MEDS: Levofloxacin 500MG/100ML D5W 500 MG/100 ML BAG IV SCH (10:13)
[2022-06-01] MEDS: DUONEB 0.5-3 MG/3 ml Neb IH SCH ×2 (13:20→18:41)
[2022-06-01] MEDS ORDERED: Tums EX 750 MG PO PRN (15:58)
[2022-06-01] MEDS: Sodium Chloride 0.9% 1000 ML 1,000 ML IV SCH (19:56)
[2022-06-01] MEDS: Miralax Powder 17GM PACKET PO SCH (21:15)
[2022-06-01] MEDS: Lidoderm Patch 5% TOP SCH (21:37)
[2022-06-01] MEDS: Protonix 40MG Tablet PO SCH (21:38)
[2022-06-01] MEDS: Ditropan 5 MG PO SCH (21:38)
[2022-06-01] MEDS ORDERED: NON-FORMULARY ITEM (Budesonide/Formoterol Fumarate [Budesonide-Formoterol 160-4.5] 10.2 GM IH SCH (22:00)
[2022-06-01] MEDS ORDERED: BENADRYL 25 MG CAPSULE PO ONE (22:00)
[2022-06-01] MEDS ORDERED: TYLENOL EXTRA STRENGTH 500 MG PO ONE (22:00)
[2022-06-02] MEDS: DUONEB 0.5-3 MG/3 ml Neb IH SCH ×4 (00:43→18:40)
[2022-06-02] MEDS: Hydromorphone 1 mg/ml Injection IV PRN ×4 (00:47→23:04)
[2022-06-02] MEDS: Sodium Chloride 0.9% 1000 ML 1,000 ML IV SCH ×2 (05:36→16:41)
--- NOTE | 2022-06-02 07:14 | PCM.NOTE ---
Date and Time: 06/02/22712 Subjective Assessment: doing better - Review of Systems Constitutional: No Fever, No Chills Eyes: No Symptoms Ears, Nose, & Throat: No Symptoms Respiratory: No Cough, No Short Of Breath Cardiac: No Chest Pain, No Edema, No Syncope Abdominal/Gastrointestinal: No Abdominal Pain, No Nausea, No Vomiting, No Diarrhea Genitourinary Symptoms: No Dysuria Musculoskeletal: No Back Pain, No Neck Pain Skin: No Rash Neurological: No Dizziness, No Focal Weakness, No Sensory Changes Psychological: No Symptoms Endocrine: No Symptoms Hematologic/Lymphatic: No Symptoms Immunological/Allergic: No Symptoms Objective Exam General Appearance: no apparent distress, alert Neurologic Exam: alert, oriented x 3, cooperative, normal mood/affect, nml cerebellar function, sensation nml, No motor deficits Skin Exam: normal color, warm, dry Wound Assessment: Skin/Wound Assessment Wound/Incision Assessment Start: 05/31/22 23:32 Text: Status: Active Freq: Q6H Protocol: Document 06/02/22 02:00 TC (Rec: 06/02/22 02:13 TC [id number]) Wound/Incision Assessment Bilateral Thighs Wound Assessment Shift Assessment Wound Type bug bites Wound Stage Non Pressure Wound Drainage Amount None General Appearance Open to air Surrounding Tissue [place] Wound Photo Photo Taken No Eye Exam: PERRL, EOMI, eyes nml inspection Ears, Nose, Throat Exam: normal ENT inspection, pharynx normal, moist mucous membranes Neck Exam: normal inspection, non-tender, supple, full range of motion Respiratory Exam: normal breath sounds, lungs clear, No respiratory distress Cardiovascular Exam: regular rate/rhythm, normal heart sounds Gastrointestinal/Abdomen Exam: soft, No tenderness, No mass Extremity Exam: normal inspection, normal range of motion Back Exam: normal inspection, normal range of motion, No CVA tenderness, No vertebral tenderness Pelvic Exam: deferred Rectal Exam: deferred OBJECTIVE DATA Vital Signs: Vital Signs - 24 hr Temp Pulse Resp BP Pulse Ox 06/02/22 07:07 98.7 F 64 18 134/62 89 L 06/02/22 04:00 98.6 F 67 18 128/60 95 06/02/22 00:43 75 18 92 L 06/02/22 00:00 98.9 F 77 17 140/63 91 L 06/01/22 20:00 97.6 F 73 16 130/68 90 L 06/01/22 18:41 73 20 91 L 06/01/22 16:00 97.7 F 70 18 135/61 90 L 06/01/22 13:20 64 18 92 L 06/01/22 11:45 98.1 F 60 16 122/60 97 06/01/22 07:49 60 16 97 06/01/22 07:33 98.1 F 60 20 122/60 79 L Pain Assessment - Last Documented Pain Intensity 5 Pain Scale Used [facility] Intake and Output: Intake & Output 05/30/22 05/31/22 06/01/22 06/02/22 11:59 11:59 11:59 11:59 Intake Total 537 3693 Balance 537 3693 Weight 50.3 kg Radiology Exams: Radiology Procedures Category Date Time Status ABDOMEN AND PELVIS W/0 CONTRAS [CT] Stat Exams 05/31/22 14:14 Completed CHEST WITHOUT CONTRAST [CT] Stat Exams 05/31/22 14:42 Completed WRIST (MIN 3 VIEWS) Stat Exams 05/31/22 14:30 Completed Multi-Disciplinary Progress Notes: Multi-Disciplinary Progress Notes 06/01/22 19:24 Respiratory Note by Carolina Cortes THE PT'S FAMILY WAS AT BEDSIDE AND HAD JUST DONE I.S WITH THE PT UPON MY ENTERING THE ROOM. THE PT STATED THAT SHE "ONLY GOT IT TO THE FIRST LINE", BUT SHE HAD TROUBLE TAKING A DEEP BREATH IN DUE TO PAIN. Initialized on 06/01/22 19:24 - END OF NOTE Assessment/Plan (1) Pneumonia Current Visit: Yes Status: Acute Qualifiers: Pneumonia type: due to unspecified organism Laterality: left Lung location: lower lobe of lung Qualified Code(s): J18.9 - Pneumonia, unspecified organism Code(s): J18.9 - PNEUMONIA, UNSPECIFIED ORGANISM (2) Ribs, multiple fractures Current Visit: Yes Status: Acute Qualifiers: Encounter type: subsequent encounter Fracture type: closed Laterality: right Code(s): S22.49XA - MULTIPLE FRACTURES OF RIBS, UNSP SIDE, INIT FOR CLOS FX
[2022-06-02] MEDS: Advair Hfa 230/21 Mcg COMMON CANISTER IH SCH ×2 (07:53→18:41)
[2022-06-02] MEDS: Levofloxacin 500MG/100ML D5W 500 MG/100 ML BAG IV SCH (09:18)
[2022-06-02] MEDS: ULTRAM 50 MG PO PRN ×2 (09:18→22:43)
[2022-06-02] MEDS: Protonix 40MG Tablet PO SCH ×2 (09:18→22:43)
[2022-06-02] MEDS ORDERED: BABY ASPIRIN 81 MG CHEW PO SCH (10:00)
[2022-06-02] MEDS ORDERED: DELTASONE 10 MG PO SCH (10:00)
[2022-06-02] MEDS ORDERED: GINKGO PO SCH (10:00)
[2022-06-02] MEDS ORDERED: MULTIVIT MINERALS PO SCH (10:00)
[2022-06-02] MEDS ORDERED: FOLIC PO SCH (10:00)
[2022-06-02] MEDS ORDERED: NON-FORMULARY ITEM (Pravastatin Sodium [Pravastatin Sodium] 20 MG Tablet) PO SCH (10:00)
[2022-06-02] MEDS ORDERED: [UNRECOGNIZED DRUG - OTHER] PO SCH (10:00)
[2022-06-02] MEDS: ZOCOR 20MG PO SCH (10:56)
[2022-06-02] MEDS: ECOTRIN 81 MG PO SCH (10:57)
[2022-06-02] MEDS: THERAGRAN MULTIVITAMIN PO SCH (10:57)
[2022-06-02] MEDS: Ditropan 5 MG PO SCH (22:43)
[2022-06-02] MEDS: Lidoderm Patch 5% TOP SCH (22:43)
[2022-06-02] MEDS: Miralax Powder 17GM PACKET PO SCH (23:15)
[2022-06-03] MEDS: DUONEB 0.5-3 MG/3 ml Neb IH SCH ×4 (00:37→19:08)
[2022-06-03] MEDS: Sodium Chloride 0.9% 1000 ML 1,000 ML IV SCH (02:40)
[2022-06-03] MEDS: Hydromorphone 1 mg/ml Injection IV PRN (03:41)
[2022-06-03] MEDS: Advair Hfa 230/21 Mcg COMMON CANISTER IH SCH ×2 (07:19→19:21)
--- NOTE | 2022-06-03 08:43 | PCM.NOTE ---
Date and Time: 06/03/22 0841 Subjective Assessment: patient appears dyspneic slightly during exam, she feels short of breath if she gets up, pain is significant in the rib and back area, coughing some. concerned about her mobility and going home, daughter helps her but works outside the home Objective Exam General Appearance: no apparent distress Neurologic Exam: alert, oriented x 3 Wound Assessment: Skin/Wound Assessment Wound/Incision Assessment Start: 05/31/22 23:32 Text: Status: Active Freq: Q6H Protocol: Document 06/03/22 02:00 TC (Rec: 06/03/22 02:33 TC [id number]) Wound/Incision Assessment Bilateral Thighs Wound Assessment Shift Assessment Wound Type bug bites Wound Stage Non Pressure Wound Drainage Amount None General Appearance Open to air Surrounding Tissue [place] Wound Photo Photo Taken No Respiratory Exam: rhonchi Cardiovascular Exam: regular rate/rhythm, normal heart sounds Gastrointestinal/Abdomen Exam: soft, No tenderness, No mass Extremity Exam: normal inspection, normal range of motion OBJECTIVE DATA Vital Signs: Vital Signs - 24 hr Temp Pulse Resp BP Pulse Ox 06/03/22 08:00 98.3 F 68 23 159/71 90 L 06/03/22 07:52 72 16 90 L 06/03/22 03:46 98.7 F 74 16 139/63 92 L 06/03/22 00:37 75 19 95 06/02/22 23:48 98.9 F 74 17 148/64 92 L 06/02/22 20:00 99.5 F 79 20 147/65 94 L 06/02/22 18:40 79 20 94 L 06/02/22 16:00 98.2 F 63 18 183/77 91 L 06/02/22 13:14 61 18 93 L 06/02/22 11:54 98.1 F 86 16 144/65 95 Pain Assessment - Last Documented Pain Intensity 7 Pain Scale Used [facility] Intake and Output: Intake & Output 05/31/22 06/01/22 06/02/22 06/03/22 11:59 11:59 11:59 11:59 Intake Total 537 3693 4349 Balance 537 3693 2869 Weight 50.3 kg Radiology Exams: Radiology Procedures Category Date Time Status CHEST 1 VIEW (PORTABLE) Routine Exams 06/03/22 08:40 Ordered Assessment/Plan (1) Pneumonia Current Visit: Yes Status: Acute Qualifiers: Pneumonia type: due to unspecified organism Laterality: left Lung location: lower lobe of lung Qualified Code(s): J18.9 - Pneumonia, unspecified organism Assessment & Plan: check chest xray, rhonci present throughout. will d/c IV fluids, continue levaquin for now. discussed possible need for rehab stay after discharge, patient seems interested in good [facility] potentially Code(s): J18.9 - PNEUMONIA, UNSPECIFIED ORGANISM (2) Lumbar transverse process fracture Current Visit: Yes Status: Acute Code(s): S32.009A - UNSP FRACTURE OF UNSP LUMBAR VERTEBRA, INIT FOR CLOS FX (3) Ribs, multiple fractures Current Visit: Yes Status: Acute Qualifiers: Encounter type: subsequent encounter Fracture type: closed Laterality: right Code(s): S22.49XA - MULTIPLE FRACTURES OF RIBS, UNSP SIDE, INIT FOR CLOS FX
--- NOTE | 2022-06-03 09:18 | XRAY ---
Indication: Pneumonia. Rib fractures. Comparison: March 01, 2022 Portable chest demonstrates new moderate bibasilar pleural effusions with compressive atelectasis and borderline cardiomegaly, concerning for cardiac decompensation versus fluid overload. New left base consolidating airspace disease worsened with respect to recent CT chest and increasing large hiatal hernia.
[2022-06-03 09:32] LABS: Absolute Neutrophil Ct (ANC) 9.47 x10^3/uL (1.4-6.9); Basophil (Absolute #) 0.02 x10^3/uL (0-0.4); Eosinophil % 1.2 % (0.00-5.0); Eosinophil (Absolute #) 0.13 x10^3/uL (0-0.5); Hematocrit 35.3 % (35-47); Hemoglobin 10.7 g/dL (12.0-16.0); Lymphocyte (Absolute #) 0.88 x10^3/uL (1.0-4.6); Lymphocytes % 7.9 % (24.0-44.0); Mean Cell Volume 94.4 fL (78-100); Mean Corpuscular Hemoglobin 28.6 pg (26-32); Mean Corpuscular Hgb Concent. 30.3 g/dL (32-36); Mean Platelet Volume 10.6 fL (7.5-11.0); Monocyte (Absolute #) 0.61 x10^3/uL (0.0-1.3); Monocytes % 5.5 % (0.0-12.0); Neutrophil % 84.8 % (36.0-66.0); Platelet Count 216 x10^3/uL (150-450); Red Blood Count 3.74 x10^6/uL (4.1-5.4); Red Cell Distribution Width 15.3 % (11.5-14.0); White Blood Count 11.2 x10^3/uL (4.0-10.5)
[2022-06-03] MEDS: ECOTRIN 81 MG PO SCH (09:38)
[2022-06-03] MEDS: Levofloxacin 500MG/100ML D5W 500 MG/100 ML BAG IV SCH (09:38)
[2022-06-03] MEDS: Protonix 40MG Tablet PO SCH ×2 (09:38→21:21)
[2022-06-03] MEDS: ZOCOR 20MG PO SCH (09:38)
[2022-06-03] MEDS: THERAGRAN MULTIVITAMIN PO SCH (09:38)
[2022-06-03 09:53] LABS: ANION GAP 12.1 MEQ/L (5-15); BLOOD UREA NITROGEN 8 mg/dL (7-17); CHLORIDE 110 mmol/L (98-107); Calcium 7.9 mg/dL (8.4-10.2); Carbon Dioxide 21 mmol/L (22-30); Creatinine 1 0.87 mg/dL (0.52-1.04); EST GLOMERULAR FILTRATION RATE > 60.0 ML/MIN; Glucose 88 mg/dL (74-106); Potassium 3.3 mmol/L (3.5-5.1); SODIUM 140 mmol/L (137-145)
[2022-06-03] MEDS: Lidoderm Patch 5% TOP SCH (21:21)
[2022-06-03] MEDS: Ditropan 5 MG PO SCH (21:21)
[2022-06-03] MEDS: Miralax Powder 17GM PACKET PO SCH (21:22)
[2022-06-04] MEDS: Hydromorphone 1 mg/ml Injection IV PRN ×3 (00:25→21:27)
[2022-06-04] MEDS: DUONEB 0.5-3 MG/3 ml Neb IH SCH ×4 (01:23→19:45)
[2022-06-04 05:07] LABS: Absolute Neutrophil Ct (ANC) 9.19 x10^3/uL (1.4-6.9); Basophil (Absolute #) 0.04 x10^3/uL (0-0.4); Eosinophil % 1.6 % (0.00-5.0); Eosinophil (Absolute #) 0.18 x10^3/uL (0-0.5); Hematocrit 32.4 % (35-47); Hemoglobin 9.9 g/dL (12.0-16.0); Lymphocyte (Absolute #) 0.84 x10^3/uL (1.0-4.6); Lymphocytes % 7.6 % (24.0-44.0); Mean Cell Volume 93.1 fL (78-100); Mean Corpuscular Hemoglobin 28.4 pg (26-32); Mean Corpuscular Hgb Concent. 30.6 g/dL (32-36); Mean Platelet Volume 11.3 fL (7.5-11.0); Monocyte (Absolute #) 0.74 x10^3/uL (0.0-1.3); Monocytes % 6.7 % (0.0-12.0); Platelet Count 211 x10^3/uL (150-450); Red Blood Count 3.48 x10^6/uL (4.1-5.4); Red Cell Distribution Width 15.3 % (11.5-14.0); White Blood Count 11.1 x10^3/uL (4.0-10.5)
[2022-06-04 05:17] LABS: ALBUMIN 2.5 g/dL (3.5-5.0); ALKALINE PHOSPHATASE 87 U/L (38-126); ANION GAP 8.5 MEQ/L (5-15); BLOOD UREA NITROGEN 12 mg/dL (7-17); CHLORIDE 110 mmol/L (98-107); Calcium 7.9 mg/dL (8.4-10.2); Carbon Dioxide 23 mmol/L (22-30); Creatinine 1 0.85 mg/dL (0.52-1.04); EST GLOMERULAR FILTRATION RATE > 60.0 ML/MIN; Glucose 105 mg/dL (74-106); Potassium 3.6 mmol/L (3.5-5.1); SGOT/AST 25 U/L (14-36); SGPT/ALT 12 U/L (0-35); SODIUM 138 mmol/L (137-145); Total Protein 5.9 g/dL (6.3-8.2)
[2022-06-04] MEDS: Advair Hfa 230/21 Mcg COMMON CANISTER IH SCH ×2 (07:09→19:45)
[2022-06-04] MEDS: Sodium Chloride 0.9% 1000 ML 1,000 ML IV SCH (07:48)
--- NOTE | 2022-06-04 08:56 | PCM.NOTE ---
Date and Time: 06/04/22853 Subjective Assessment: patient appears a little more short of breath, chest xray from 06/03 shows volume overload and enlarging effusions. fluids were stopped yesterday Objective Exam General Appearance: no apparent distress Neurologic Exam: alert, oriented x 3 Wound Assessment: Skin/Wound Assessment Wound/Incision Assessment Start: 05/31/22 23:32 Text: Status: Active Freq: Q6H Protocol: Document 06/04/22 08:00 HONEY (Rec: 06/04/22 08:05 HONEY [id number]) Wound/Incision Assessment Bilateral Thighs Wound Assessment Shift Assessment Wound Type bug bites Wound Stage Non Pressure Wound Drainage Amount None General Appearance Open to air Surrounding Tissue [place] Wound Photo Photo Taken No Respiratory Exam: crackles/rales, No respiratory distress Cardiovascular Exam: regular rate/rhythm, normal heart sounds Gastrointestinal/Abdomen Exam: soft, No tenderness, No mass Extremity Exam: normal inspection, normal range of motion OBJECTIVE DATA Vital Signs: Vital Signs - 24 hr Temp Pulse Resp BP Pulse Ox 06/04/22 08:00 98.2 F 79 18 136/64 91 L 06/04/22 07:01 72 18 91 L 06/04/22 04:00 98.1 F 83 17 142/64 90 L 06/04/22 01:23 89 18 91 L 06/04/22 00:00 97.9 F 74 17 145/67 94 L 06/03/22 19:18 98.9 F 73 19 169/70 92 L 06/03/22 19:08 73 20 92 L 06/03/22 16:00 98.9 F 88 22 130/61 89 L 06/03/22 13:34 76 20 85 L 06/03/22 12:00 100.0 F 78 25 H 144/64 92 L Pain Assessment - Last Documented Pain Intensity 6 Pain Scale Used [facility] Intake and Output: Intake & Output 06/01/22 06/02/22 06/03/22 06/04/22 11:59 11:59 11:59 11:59 Intake Total 537 3693 2869 360 Output Total 500 Balance 537 8563 6689 -140 Weight 50.3 kg Lab Results: Lab Results-Last 24 Hours 06/03/22 06/03/22 06/04/22 Range/Units 09:20 09:20 04:00 WBC 11.2 H 11.1 H (4.0-10.5) x10^3/uL RBC 3.74 L 3.48 L (4.1-5.4) x10^6/uL Hgb 10.7 L 9.9 L (12.0-16.0) g/dL Hct 35.3 32.4 L (35-47) % MCV 94.4 93.1 (78-100) fL MCH 28.6 28.4 (26-32) pg MCHC 30.3 L 30.6 L (32-36) g/dL RDW 15.3 H 15.3 H (11.5-14.0) % Plt Count 216 211 (150-450) x10^3/uL MPV 10.6 11.3 H (7.5-11.0) fL Gran % 84.8 H 83.0 H (36.0-66.0) % Immature Gran % (Auto) 0.4 0.7 H (0.00-0.4) % Nucleat RBC Rel Count 0.0 0.0 (0.00-0.1) % Eos # (Auto) 0.13 0.18 (0-0.5) x10^3/uL Immature Gran # (Auto) 0.05 H 0.08 H (0.00-0.03) x10^3u/L Absolute Lymphs (auto) 0.88 L 0.84 L (1.0-4.6) x10^3/uL Absolute Monos (auto) 0.61 0.74 (0.0-1.3) x10^3/uL Absolute Nucleated RBC 0.00 0.00 (0.00-0.01) x10^3u/L Lymphocytes % 7.9 L 7.6 L (24.0-44.0) % Monocytes % 5.5 6.7 (0.0-12.0) % Eosinophils % 1.2 1.6 (0.00-5.0) % Basophils % 0.2 0.4 (0.0-0.4) % Absolute Granulocytes 9.47 H 9.19 H (1.4-6.9) x10^3/uL Basophils # 0.02 0.04 (0-0.4) x10^3/uL Sodium 140 (137-145) mmol/L Potassium 3.3 L (3.5-5.1) mmol/L Chloride 110 H (98-107) mmol/L Carbon Dioxide 21 L (22-30) mmol/L Anion Gap 12.1 (5-15) MEQ/L BUN 8 (7-17) mg/dL Creatinine 0.87 (0.52-1.04) mg/dL Estimated GFR > 60.0 ML/MIN Glucose 88 (74-106) mg/dL Calcium 7.9 L (8.4-10.2) mg/dL Total Bilirubin (0.2-1.3) mg/dL AST (14-36) U/L ALT (0-35) U/L Alkaline Phosphatase (38-126) U/L Serum Total Protein (6.3-8.2) g/dL Albumin (3.5-5.0) g/dL 06/04/22 Range/Units 04:00 WBC (4.0-10.5) x10^3/uL RBC (4.1-5.4) x10^6/uL Hgb (12.0-16.0) g/dL Hct (35-47) % MCV (78-100) fL MCH (26-32) pg MCHC (32-36) g/dL RDW (11.5-14.0) % Plt Count (150-450) x10^3/uL MPV (7.5-11.0) fL Gran % (36.0-66.0) % Immature Gran % (Auto) (0.00-0.4) % Nucleat RBC Rel Count (0.00-0.1) % Eos # (Auto) (0-0.5) x10^3/uL Immature Gran # (Auto) (0.00-0.03) x10^3u/L Absolute Lymphs (auto) (1.0-4.6) x10^3/uL Absolute Monos (auto) (0.0-1.3) x10^3/uL Absolute Nucleated RBC (0.00-0.01) x10^3u/L Lymphocytes % (24.0-44.0) % Monocytes % (0.0-12.0) % Eosinophils % (0.00-5.0) % Basophils % (0.0-0.4) % Absolute Granulocytes (1.4-6.9) x10^3/uL Basophils # (0-0.4) x10^3/uL Sodium 138 (137-145) mmol/L Potassium 3.6 (3.5-5.1) mmol/L Chloride 110 H (98-107) mmol/L Carbon Dioxide 23 (22-30) mmol/L Anion Gap 8.5 (5-15) MEQ/L BUN 12 (7-17) mg/dL Creatinine 0.85 (0.52-1.04) mg/dL Estimated GFR > 60.0 ML/MIN Glucose 105 (74-106) mg/dL Calcium 7.9 L (8.4-10.2) mg/dL Total Bilirubin 0.30 (0.2-1.3) mg/dL AST 25 (14-36) U/L ALT 12 (0-35) U/L Alkaline Phosphatase 87 (38-126) U/L Serum Total Protein 5.9 L (6.3-8.2) g/dL Albumin 2.5 L (3.5-5.0) g/dL Radiology Exams: Radiology Procedures Category Date Time Status CHEST 1 VIEW (PORTABLE) Routine Exams 06/03/22 08:40 Completed Multi-Disciplinary Progress Notes: Multi-Disciplinary Progress Notes 06/03/22 15:56 Case Management Note by Lovely Sweeney RECEIVED PHONE CALL FROM [facility] AND THEY ARE ACCEPTING PATIENT PENDING APPROVAL FROM INSURANCE. THEY WILL NOTIFY US WHEN THEY HAVE APPROVAL. Initialized on 06/03/22 15:56 - END OF NOTE Assessment/Plan (1) Pneumonia Current Visit: Yes Status: Acute Qualifiers: Pneumonia type: due to unspecified organism Laterality: left Lung location: lower lobe of lung Qualified Code(s): J18.9 - Pneumonia, unspecified organism Assessment & Plan: continue levaquin, add IV lasix. patient wishes to return to home upon discharge, family insists they can care for her. will consult with home health, will likely need oxygen at discharge and already has a hospital bed in her home from her . Code(s): J18.9 - PNEUMONIA, UNSPECIFIED ORGANISM (2) Lumbar transverse process fracture Current Visit: Yes Status: Acute Code(s): S32.009A - UNSP FRACTURE OF UNSP LUMBAR VERTEBRA, INIT FOR CLOS FX (3) Ribs, multiple fractures Current Visit: Yes Status: Acute Qualifiers: Encounter type: subsequent encounter Fracture type: closed Laterality: right Code(s): S22.49XA - MULTIPLE FRACTURES OF RIBS, UNSP SIDE, INIT FOR CLOS FX
[2022-06-04] MEDS ORDERED: Docusate Sodium 100 MG PO PRN (09:31)
[2022-06-04] MEDS: Protonix 40MG Tablet PO SCH ×2 (09:42→21:26)
[2022-06-04] MEDS: Lasix 20 MG/2 ML IV SCH ×2 (09:42→16:04)
[2022-06-04] MEDS: ZOCOR 20MG PO SCH (09:42)
[2022-06-04] MEDS: ULTRAM 50 MG PO PRN (09:42)
[2022-06-04] MEDS: ECOTRIN 81 MG PO SCH (09:42)
[2022-06-04] MEDS: Levofloxacin 500MG/100ML D5W 500 MG/100 ML BAG IV SCH (09:42)
[2022-06-04] MEDS: Klor Con PO SCH ×2 (09:42→21:27)
[2022-06-04] MEDS: THERAGRAN MULTIVITAMIN PO SCH (09:42)
[2022-06-04] MEDS: Lidoderm Patch 5% TOP SCH (21:26)
[2022-06-04] MEDS: Ditropan 5 MG PO SCH (21:26)
[2022-06-04] MEDS: Miralax Powder 17GM PACKET PO SCH (21:28)
[2022-06-05] MEDS: DUONEB 0.5-3 MG/3 ml Neb IH SCH ×4 (01:34→19:49)
[2022-06-05] MEDS: Hydromorphone 1 mg/ml Injection IV PRN (04:53)
[2022-06-05 05:55] LABS: Basophil (Absolute #) 0.02 x10^3/uL (0-0.4); Eosinophil % 2.4 % (0.00-5.0); Eosinophil (Absolute #) 0.24 x10^3/uL (0-0.5); Hematocrit 34.5 % (35-47); Hemoglobin 10.9 g/dL (12.0-16.0); Lymphocyte (Absolute #) 1.03 x10^3/uL (1.0-4.6); Lymphocytes % 10.3 % (24.0-44.0); Mean Cell Volume 89.8 fL (78-100); Mean Corpuscular Hemoglobin 28.4 pg (26-32); Mean Corpuscular Hgb Concent. 31.6 g/dL (32-36); Mean Platelet Volume 11.5 fL (7.5-11.0); Monocyte (Absolute #) 0.75 x10^3/uL (0.0-1.3); Monocytes % 7.5 % (0.0-12.0); Neutrophil % 79.2 % (36.0-66.0); Platelet Count 229 x10^3/uL (150-450); Red Blood Count 3.84 x10^6/uL (4.1-5.4); Red Cell Distribution Width 15.3 % (11.5-14.0)
[2022-06-05 06:26] LABS: ANION GAP 7.6 MEQ/L (5-15); BLOOD UREA NITROGEN 12 mg/dL (7-17); CHLORIDE 101 mmol/L (98-107); Calcium 8.1 mg/dL (8.4-10.2); Carbon Dioxide 32 mmol/L (22-30); Creatinine 1 0.87 mg/dL (0.52-1.04); EST GLOMERULAR FILTRATION RATE > 60.0 ML/MIN; Glucose 96 mg/dL (74-106); NT PRO BNP 874 pg/mL (0-1800); SODIUM 137 mmol/L (137-145)
[2022-06-05] MEDS: Advair Hfa 230/21 Mcg COMMON CANISTER IH SCH ×2 (07:16→19:49)
[2022-06-05] MEDS ORDERED: K-LYTE PO ONE (08:55)
--- NOTE | 2022-06-05 08:57 | PCM.NOTE ---
Date and Time: 06/05/22 0856 Subjective Assessment: today patient is concerned about her weakness and lack of mobility to return to her home, now is thinking she will indeed need rehab as I suggested. still has some cough and shortness of breath, slight increase in oxygen requirement Objective Exam General Appearance: no apparent distress Neurologic Exam: alert, oriented x 3 Wound Assessment: Skin/Wound Assessment Wound/Incision Assessment Start: 05/31/22 23:32 Text: Status: Active Freq: Q6H Protocol: Document 06/05/22 01:59 LM (Rec: 06/05/22 02:17 LM [id number]) Wound/Incision Assessment Bilateral Thighs Wound Assessment Shift Assessment Wound Type bug bites Wound Stage Non Pressure Wound Drainage Amount None General Appearance Open to air Surrounding Tissue [place] Wound Photo Photo Taken No Respiratory Exam: rhonchi Cardiovascular Exam: regular rate/rhythm, normal heart sounds Gastrointestinal/Abdomen Exam: soft, No tenderness, No mass OBJECTIVE DATA Vital Signs: Vital Signs - 24 hr Temp Pulse Resp BP Pulse Ox 06/05/22 08:08 96.9 F 95 H 17 162/98 99 06/05/22 07:20 66 14 92 L 06/05/22 04:22 98.0 F 74 16 141/65 90 L 06/05/22 01:34 74 16 90 L 06/04/22 23:46 98.0 F 70 16 141/65 94 L 06/04/22 20:00 99.1 F 84 19 114/58 91 L 06/04/22 19:46 76 18 93 L 06/04/22 16:00 98.2 F 79 18 144/72 91 L 06/04/22 12:39 79 12 92 L 06/04/22 12:00 98.1 F 78 18 141/71 92 L Pain Assessment - Last Documented Pain Intensity 6 Pain Scale Used 0-10 Pain Scale Intake and Output: Intake & Output 06/02/22 06/03/22 06/04/22 06/05/22 11:59 11:59 11:59 11:59 Intake Total 3693 2869 360 60 Output Total 800 1000 Balance 8208 3537 -921 -145 Weight 50.3 kg Lab Results: Lab Results-Last 24 Hours 06/05/22 06/05/22 Range/Units 04:45 04:45 WBC 10.0 (4.0-10.5) x10^3/uL RBC 3.84 L (4.1-5.4) x10^6/uL Hgb 10.9 L (12.0-16.0) g/dL Hct 34.5 L (35-47) % MCV 89.8 (78-100) fL MCH 28.4 (26-32) pg MCHC 31.6 L (32-36) g/dL RDW 15.3 H (11.5-14.0) % Plt Count 229 (150-450) x10^3/uL MPV 11.5 H (7.5-11.0) fL Gran % 79.2 H (36.0-66.0) % Immature Gran % (Auto) 0.4 (0.00-0.4) % Nucleat RBC Rel Count 0.0 (0.00-0.1) % Eos # (Auto) 0.24 (0-0.5) x10^3/uL Immature Gran # (Auto) 0.04 H (0.00-0.03) x10^3u/L Absolute Lymphs (auto) 1.03 (1.0-4.6) x10^3/uL Absolute Monos (auto) 0.75 (0.0-1.3) x10^3/uL Absolute Nucleated RBC 0.00 (0.00-0.01) x10^3u/L Lymphocytes % 10.3 L (24.0-44.0) % Monocytes % 7.5 (0.0-12.0) % Eosinophils % 2.4 (0.00-5.0) % Basophils % 0.2 (0.0-0.4) % Absolute Granulocytes 7.90 H (1.4-6.9) x10^3/uL Basophils # 0.02 (0-0.4) x10^3/uL Sodium 137 (137-145) mmol/L Potassium 3.0 L* (3.5-5.1) mmol/L Chloride 101 (98-107) mmol/L Carbon Dioxide 32 H (22-30) mmol/L Anion Gap 7.6 (5-15) MEQ/L BUN 12 (7-17) mg/dL Creatinine 0.87 (0.52-1.04) mg/dL Estimated GFR > 60.0 ML/MIN Glucose 96 (74-106) mg/dL Calcium 8.1 L (8.4-10.2) mg/dL NT-Pro-B Natriuret Pep 874 (0-1800) pg/mL Radiology Exams: Radiology Procedures Category Date Time Status CHEST 1 VIEW (PORTABLE) Routine Exams 06/03/22 08:40 Completed CHEST 1 VIEW (PORTABLE) Routine Exams 06/05/22 08:55 Ordered Multi-Disciplinary Progress Notes: Multi-Disciplinary Progress Notes 06/04/22 15:24 Physical Therapy Note by Miriam(Baron#[id number])Loreto PT. SEEN BY P.T. THIS PM. HAD C/L ANKLE AND LE PN THIS AM AND FELT BETTER IN BED. PT. CONT. ON 2L O2. O2 QASIM 90% AT REST IN BED ON 2L. REPORTS LE PN MUCH DECREASED THIS AFTERNOON. STILL C/O R RIB PN D/T FX W/ MOVEMENT, DEEP BREATHING, AND COUGHING. PT. AGREEABLE TO P.T. PERFORMED LE EX'S IN SUPINE OF ANKEL PUMPS, QUAD SETS, HEEL SLIDES X 10 REPS. REQUIRES FREQUENT V.C. TO BREATHE IN THROUGH HER NOSE. PERFORMED SUPINE TO SIT W/ MIN ASSIST W/ HOB ELEVATED. ENCOURAGED PT. TO ROLL BEFORE SITTING UP TO DECREASE RIB PN. PERFORMED SIT TO STAND W/ CGA-MIN ASSIST W/ ROLLATOR; PERFORMED PIVOT TRANSFER TO BEDSIDE COMMODE W/ ROLLATOR AND MIN ASSIST. ABLE TO STAND FROM BEDSIDE COMMODE W/ MIN ASSIST. REQUIRED ASSIST FOR HYGIENE. O2 SATS DROPPED TO 81% O 2L AFTER TRANSFER. PT. ABLE TO TRANSFER W/ MIN ASSIST AND ROLLATOR TO BEDSIDE CHAIR. HOUSE SUPERVISER CAME IN TO ASSIST, INCREASED O2 TO 3 L AND CALLED RT. SATS STILL 87-89% ON 3 L. PT. WAS ABLE TO COUGH BUT ONLY PRODUCED A SMALL AMOUNT OF SPUTUM. RT INCREASED O2 TO 5L. PT. ABLE TO REMAIN IN CHAIR. PT. REPORTED FAMILY WOULD LIKE FOR HER TO D/C HOME W/ THEIR ASSISTANCE BUT OBVIOUS CONCERNS PRESENT W/ LEVEL OF WEAKNESS AND POOR ACTIVITY TOLERANCE AND LOW O2 SATS. CONT. TO RECOMMEND SNF STAY FOR REHAB IF INSURANCE APPROVES. WILL CONT. P.T. 5X/WK UNTIL D/C TO ADDRESS FUNCTIONAL DEFICITS. Initialized on 06/04/22 15:24 - END OF NOTE 06/04/22 14:56 Respiratory Note by Shari Antonio RT called to patient bedside for SpO2 of 85% on 2L nasal cannula. Patient was moved from bed to chair for PT and patient became SOB. Patient was coached on deep breathe and coughing as well as flutter and IS. Pt's cough productive of small amount of thick, childers sputum. O2 was increased to 5L nasal cannula and SpO2 increased to 93%. Patient reports that she does not feel SOB any longer. RN notified of increase in O2. Initialized on 06/04/22 14:56 - END OF NOTE 06/04/22 10:00 (created 06/04/22 18:51) Case Management Note by Yelena You S/W PATIENT AND PATIENT'S FAMILY- PATIENT NO LONGER WISHES TO GO TO [facility]. SHE REPORTS SHE PLANS TO RETURN HOME AND HER FAMILY WILL ARRANGE FOR 24 HR CARE FOR HER. SHE REPORTS THEY WILL TAKE TURNS. PATIENT IS OPEN TO HAVING C. SHE DOES NOT HAVE A PROVIDER PREFERENCE. WILL ALSO S/W PHYSICAL THERAPY REGARDING A WALKER/ROLLATOR NEED. PATIENT WOULD LIKE A HOSPITAL BED- NOTIFIED HER THAT HER FALL WILL NOT QUALIFY FOR INSURANCE TO COVER THE HOSPITAL BED. DISCUSSED THIS WITH SON WELL- HE PLANS TO CONTACT [facility] TO SEE ABOUT RENTING ONE FOR A SHORT PERIOD OF TIME. WILL KEEP REFERRAL PENDING AT [facility] AT THIS TIME IN CASE PATIENT CHANGES HER MIND PRIOR TO ACTUAL DC Initialized on 06/04/22 18:51 - END OF NOTE Assessment/Plan (1) Pneumonia Current Visit: Yes Status: Acute Qualifiers: Pneumonia type: due to unspecified organism Laterality: left Lung location: lower lobe of lung Qualified Code(s): J18.9 - Pneumonia, unspecified organism Assessment & Plan: on nithin schneider. will check a chest xray today to f/u Code(s): J18.9 - PNEUMONIA, UNSPECIFIED ORGANISM (2) Lumbar transverse process fracture Current Visit: Yes Status: Acute Code(s): S32.009A - UNSP FRACTURE OF UNSP LUMBAR VERTEBRA, INIT FOR CLOS FX (3) Ribs, multiple fractures Current Visit: Yes Status: Acute Qualifiers: Encounter type: subsequent encounter Fracture type: closed Laterality: right Assessment & Plan: patient will need rehab in my opinion rather than returning home due to her pain and lack of mobility Code(s): S22.49XA - MULTIPLE FRACTURES OF RIBS, UNSP SIDE, INIT FOR CLOS FX
[2022-06-05] MEDS: Levofloxacin 500MG/100ML D5W 500 MG/100 ML BAG IV SCH (09:51)
[2022-06-05] MEDS: Lasix 20 MG/2 ML IV SCH (09:52)
[2022-06-05] MEDS: Protonix 40MG Tablet PO SCH ×2 (09:52→20:21)
[2022-06-05] MEDS: ZOCOR 20MG PO SCH (09:52)
[2022-06-05] MEDS: Klor Con PO SCH ×2 (09:52→20:20)
[2022-06-05] MEDS: THERAGRAN MULTIVITAMIN PO SCH (09:52)
[2022-06-05] MEDS: ECOTRIN 81 MG PO SCH (09:52)
--- NOTE | 2022-06-05 10:58 | XRAY ---
Indication: Covid 19. CHF. Comparison: June 03, 2017. Portable chest demonstrates clearing of previous bibasilar pleural effusions with small residual still present. New left midlung subsegmental atelectasis. Heart not enlarged. No new cardiopulmonary abnormalities.
[2022-06-05] MEDS: NORCO 5/325 MG PO PRN ×2 (12:41→20:35)
[2022-06-05] MEDS: Ditropan 5 MG PO SCH (20:21)
[2022-06-05] MEDS: Lidoderm Patch 5% TOP SCH (20:21)
[2022-06-05] MEDS: Miralax Powder 17GM PACKET PO SCH (20:22)
[2022-06-06] MEDS: NORCO 5/325 MG PO PRN ×3 (00:23→20:03)
[2022-06-06] MEDS: DUONEB 0.5-3 MG/3 ml Neb IH SCH ×4 (01:05→18:50)
[2022-06-06 05:06] LABS: Absolute Neutrophil Ct (ANC) 7.09 x10^3/uL (1.4-6.9); Basophil (Absolute #) 0.05 x10^3/uL (0-0.4); Eosinophil % 4.8 % (0.00-5.0); Eosinophil (Absolute #) 0.49 x10^3/uL (0-0.5); Hemoglobin 9.9 g/dL (12.0-16.0); Lymphocyte (Absolute #) 1.75 x10^3/uL (1.0-4.6); Lymphocytes % 17.2 % (24.0-44.0); Mean Cell Volume 88.3 fL (78-100); Mean Corpuscular Hemoglobin 28.2 pg (26-32); Mean Corpuscular Hgb Concent. 31.9 g/dL (32-36); Mean Platelet Volume 11.4 fL (7.5-11.0); Monocyte (Absolute #) 0.79 x10^3/uL (0.0-1.3); Monocytes % 7.7 % (0.0-12.0); Neutrophil % 69.5 % (36.0-66.0); Platelet Count 236 x10^3/uL (150-450); Red Blood Count 3.51 x10^6/uL (4.1-5.4); Red Cell Distribution Width 15.5 % (11.5-14.0); White Blood Count 10.2 x10^3/uL (4.0-10.5)
[2022-06-06 05:25] LABS: ANION GAP 5.8 MEQ/L (5-15); Calcium 8.7 mg/dL (8.4-10.2); Creatinine 1 0.96 mg/dL (0.52-1.04); EST GLOMERULAR FILTRATION RATE 59.6 ML/MIN; Potassium 3.6 mmol/L (3.5-5.1)
[2022-06-06] MEDS: Advair Hfa 230/21 Mcg COMMON CANISTER IH SCH ×2 (07:49→18:51)
--- NOTE | 2022-06-06 08:00 | PCM.NOTE ---
Date and Time: 06/06/22 0758 Subjective Assessment: no new concerns, increase in pain early last night but was able to get more comfortable and sleep, stopped IV pain med and transistioning to po narcs to control pain for fractures. Objective Exam General Appearance: no apparent distress Neurologic Exam: alert, oriented x 3 Wound Assessment: Skin/Wound Assessment Wound/Incision Assessment Start: 05/31/22 23:32 Text: Status: Active Freq: Q6H Protocol: Document 06/06/22 07:25 HONEY (Rec: 06/06/22 07:26 HONEY [id number]) Wound/Incision Assessment Bilateral Thighs Wound Assessment Shift Assessment Comment HEALED BUG BITES Wound Photo Photo Taken No Respiratory Exam: rhonchi Cardiovascular Exam: regular rate/rhythm, normal heart sounds Gastrointestinal/Abdomen Exam: soft, No tenderness, No mass Extremity Exam: normal inspection, normal range of motion OBJECTIVE DATA Vital Signs: Vital Signs - 24 hr Temp Pulse Resp BP Pulse Ox 06/06/22 07:15 98.6 F 75 17 122/58 95 06/06/22 01:08 88 18 93 L 06/06/22 00:00 98.6 F 84 18 146/67 93 L 06/05/22 20:00 98.4 F 72 16 125/58 95 06/05/22 19:50 81 16 96 06/05/22 16:00 98.4 F 84 16 116/66 98 06/05/22 13:23 98 H 20 93 L 06/05/22 12:00 98.0 F 102 H 22 133/63 92 L 06/05/22 08:08 97.0 F 102 H 22 133/63 92 L Pain Assessment - Last Documented Pain Intensity 9 Pain Scale Used 0-10 Pain Scale Intake and Output: Intake & Output 06/03/22 06/04/22 06/05/22 06/06/22 11:59 11:59 11:59 11:59 Intake Total 2869 360 540 480 Output Total 800 1000 400 Balance 2869 -440 -460 80 Weight 50.3 kg Lab Results: Lab Results-Last 24 Hours 06/06/22 06/06/22 Range/Units 04:40 04:40 WBC 10.2 (4.0-10.5) x10^3/uL RBC 3.51 L (4.1-5.4) x10^6/uL Hgb 9.9 L (12.0-16.0) g/dL Hct 31.0 L (35-47) % MCV 88.3 (78-100) fL MCH 28.2 (26-32) pg MCHC 31.9 L (32-36) g/dL RDW 15.5 H (11.5-14.0) % Plt Count 236 (150-450) x10^3/uL MPV 11.4 H (7.5-11.0) fL Gran % 69.5 H (36.0-66.0) % Immature Gran % (Auto) 0.3 (0.00-0.4) % Nucleat RBC Rel Count 0.0 (0.00-0.1) % Eos # (Auto) 0.49 (0-0.5) x10^3/uL Immature Gran # (Auto) 0.03 (0.00-0.03) x10^3u/L Absolute Lymphs (auto) 1.75 (1.0-4.6) x10^3/uL Absolute Monos (auto) 0.79 (0.0-1.3) x10^3/uL Absolute Nucleated RBC 0.00 (0.00-0.01) x10^3u/L Lymphocytes % 17.2 L (24.0-44.0) % Monocytes % 7.7 (0.0-12.0) % Eosinophils % 4.8 (0.00-5.0) % Basophils % 0.5 (0.0-0.4) % Absolute Granulocytes 7.09 H (1.4-6.9) x10^3/uL Basophils # 0.05 (0-0.4) x10^3/uL Sodium 135 L (137-145) mmol/L Potassium 3.6 (3.5-5.1) mmol/L Chloride 99 (98-107) mmol/L Carbon Dioxide 34 H (22-30) mmol/L Anion Gap 5.8 (5-15) MEQ/L BUN 14 (7-17) mg/dL Creatinine 0.96 (0.52-1.04) mg/dL Estimated GFR 59.6 ML/MIN Glucose 98 (74-106) mg/dL Calcium 8.7 (8.4-10.2) mg/dL Magnesium 2.0 (1.6-2.3) mg/dL Radiology Exams: Radiology Procedures Category Date Time Status CHEST 1 VIEW (PORTABLE) Routine Exams 06/05/22 08:55 Completed Multi-Disciplinary Progress Notes: Multi-Disciplinary Progress Notes 06/05/22 13:57 Physical Therapy Note by Miriam(Baron#[id number])Loreto PT. SEEN BY P.T. THIS A.M. REPORTS C.O LL PN AND R RIB PN. STATED SHE DID NOT SLEEP WELL LAST NIGHT D/T LL PN. PT. HAS LOW K+. PT. HAS IV AND [address] AGREEABLE TO P.T. GRANDDAUGHTER PRESENT DURING RX. IN BED UPON P0.T. ARRIVAL TO ROOM. PERFORMED SUPINE TO SIT W/ CGA W/ HOB ELEVATED AND USE OF HR. ABLE TO SCOOT TO EDGE OF BED W/ CGA. O2 SATS 88% ON 5L W/ BED MOBILITY. V.C. GIVEN TO DEEP BREATHE AND INSPIRATE THROUGH NOSE. COUGHING NOTED AFTER TRANSFER TO COMMODE. TRANSFERRED TO BEDSIDE COMMODE W/ MIN ASSIST. REQUIRED MIN ASSIST TO DOFF AND DON DEPEND. ABLE TO PERFORM HYGIENE IN SITTING W/ SBA. PT. AMBULATED ~30 W/ O2 AND ROLLATOR W/ CGA-MIN ASSIST. O2 SATS 88% AFTER WALK BUT RECOVERED TO 92% W/ CUES TO BREATHE IN ~ 2-3'. PT. ABLE TO PERFORM LE EX'S IN SIT AND STAND LATER IN THE AM W/ IMPROVED CARDIOPULMONARY TOLERANCE AND SATS >90% ON 5L. WILL CONT. P.T. 5X/WK UNTIL D/C. AWAITING PA FROM INSURANCE FOR REHAB STAY. RX TIME [id number] Initialized on 06/05/22 13:57 - END OF NOTE 06/05/22 10:13 Case Management Note by Yelena You HAD LONG CONVERSATION WITH PATIENT LAST PM ABOUT PLANS AT [place]. PATIENT WAS VERY INDEPENDENT AND ACTIVE PRIOR TO FALL. PATIENT EDUCATED THAT HER BEST CHANCE FOR REGAINING THAT LEVEL OF FUNCTION WITH SHORT TERM REHAB. PATIENT ALSO REQUIRING OXYGEN WHICH IS NEW FOR PATIENT. S/W PATIENT THIS AM- SHE HAS S/W HER FAMILY AND EXPLAINED TO THEM THAT SHE WISHES TO GO TO THE REHAB FACILITY FOR SHORT TERM REHAB. CALLED AND S/W GRACE- SHE HAD NOT STARTED PRECERT YET D/T FAMILY HAVING CALLED HER AND TOLD HER SHE WAS NOT COMING. GRACE NOTIFIED THIS AM THAT PATIENT IS INDEED COMING. UPDATED CLINICALS FAXED AT THIS TIME SO SHE CAN START PRECERT TODAY Initialized on 06/05/22 10:13 - END OF NOTE Assessment/Plan (1) Pneumonia Current Visit: Yes Status: Acute Qualifiers: Pneumonia type: due to unspecified organism Laterality: left Lung location: lower lobe of lung Qualified Code(s): J18.9 - Pneumonia, unspecified organism Assessment & Plan: continue levaquin, clinically stable and doing well. will require rehab stay, will discharge when certification from insurance received. Code(s): J18.9 - PNEUMONIA, UNSPECIFIED ORGANISM (2) Lumbar transverse process fracture Current Visit: Yes Status: Acute Code(s): S32.009A - UNSP FRACTURE OF UNSP LUMBAR VERTEBRA, INIT FOR CLOS FX (3) Ribs, multiple fractures Current Visit: Yes Status: Acute Qualifiers: Encounter type: subsequent encounter Fracture type: closed Laterality: right Code(s): S22.49XA - MULTIPLE FRACTURES OF RIBS, UNSP SIDE, INIT FOR CLOS FX
[2022-06-06] MEDS: Levofloxacin 500MG/100ML D5W 500 MG/100 ML BAG IV SCH (09:49)
[2022-06-06] MEDS: THERAGRAN MULTIVITAMIN PO SCH (09:50)
[2022-06-06] MEDS: ECOTRIN 81 MG PO SCH (09:50)
[2022-06-06] MEDS: Protonix 40MG Tablet PO SCH ×2 (09:50→21:29)
[2022-06-06] MEDS: Klor Con PO SCH ×2 (09:50→21:29)
[2022-06-06] MEDS: ZOCOR 20MG PO SCH (09:50)
[2022-06-06] MEDS: Lasix 20 MG/2 ML IV SCH (09:51)
[2022-06-06] MEDS: Ditropan 5 MG PO SCH (21:29)
[2022-06-06] MEDS: Miralax Powder 17GM PACKET PO SCH (21:42)
[2022-06-06] MEDS: Lidoderm Patch 5% TOP SCH (21:43)
[2022-06-07] MEDS: DUONEB 0.5-3 MG/3 ml Neb IH SCH ×2 (00:19→07:16)
[2022-06-07] MEDS: NORCO 5/325 MG PO PRN ×2 (00:28→08:52)
[2022-06-07 05:00] LABS: Absolute Neutrophil Ct (ANC) 5.89 x10^3/uL (1.4-6.9); Basophil (Absolute #) 0.05 x10^3/uL (0-0.4); Eosinophil % 5.7 % (0.00-5.0); Eosinophil (Absolute #) 0.51 x10^3/uL (0-0.5); Hematocrit 32.9 % (35-47); Hemoglobin 10.4 g/dL (12.0-16.0); Lymphocyte (Absolute #) 1.73 x10^3/uL (1.0-4.6); Lymphocytes % 19.5 % (24.0-44.0); Mean Cell Volume 90.4 fL (78-100); Mean Corpuscular Hemoglobin 28.6 pg (26-32); Mean Corpuscular Hgb Concent. 31.6 g/dL (32-36); Mean Platelet Volume 11.5 fL (7.5-11.0); Monocyte (Absolute #) 0.68 x10^3/uL (0.0-1.3); Monocytes % 7.7 % (0.0-12.0); Neutrophil % 66.3 % (36.0-66.0); Platelet Count 247 x10^3/uL (150-450); Red Blood Count 3.64 x10^6/uL (4.1-5.4); Red Cell Distribution Width 15.4 % (11.5-14.0); White Blood Count 8.9 x10^3/uL (4.0-10.5)
[2022-06-07 05:38] LABS: ANION GAP 7.2 MEQ/L (5-15); Calcium 8.6 mg/dL (8.4-10.2); Creatinine 1 1.06 mg/dL (0.52-1.04); EST GLOMERULAR FILTRATION RATE 53.1 ML/MIN; PROCALCITONIN 0.115 ng/mL (0.030-0.080); Potassium 3.9 mmol/L (3.5-5.1)
[2022-06-07] MEDS: Advair Hfa 230/21 Mcg COMMON CANISTER IH SCH (07:17)
[2022-06-07 07:25] VITALS: PULSE 79
[2022-06-07 07:55] VITALS: BP 140/64; O2SAT 93
--- NOTE | 2022-06-07 08:20 | PCM.DS ---
Discharge Summary Date of Admission: 06/01/22 07:33 Admitting Physician: DAYANA MOSER Primary Care Provider: KAYLA RODAS JONO Allergies Allergies cephalexin [From Keflex] Allergy (Verified 05/31/22 22:14) Penicillins Allergy (Verified 05/31/22 22:14) [facility] Summary - Hospital Course Hospital Course: patient was admitted after a fall with transverse process fracture and rib fractures, requiring oxygen. was treated for pneumonia based off of chest xray but likely more injury related. releasing to [facility] today for rehab and to heal and improve functional status prior to return to home. patient developed some volume overload and required diuresis, felt to be euvolemic at discharge and stable at her baseline. - Vitals & Intake/Output Vital Signs: Vital Signs Temperature 97.9 F 06/07/22 07:52 Pulse Rate 79 06/07/22 07:52 Respiratory Rate 18 06/07/22 07:52 Blood Pressure 140/64 06/07/22 07:52 O2 Sat by Pulse Oximetry 93 L 06/07/22 07:52 Intake & Output: Intake & Output 06/04/22 06/05/22 06/06/22 06/07/22 11:59 11:59 11:59 11:59 Intake Total 360 540 480 480 Output Total 800 1000 400 800 Balance -440 -460 80 -320 Weight 50.3 kg - Lab Result Diagrams: 06/07/22 04:20 06/07/22 04:20 Lab Results-Last 24 Hrs: Lab Results-Last 24 Hours 06/07/22 06/07/22 Range/Units 04:20 04:20 WBC 8.9 (4.0-10.5) x10^3/uL RBC 3.64 L (4.1-5.4) x10^6/uL Hgb 10.4 L (12.0-16.0) g/dL Hct 32.9 L (35-47) % MCV 90.4 (78-100) fL MCH 28.6 (26-32) pg MCHC 31.6 L (32-36) g/dL RDW 15.4 H (11.5-14.0) % Plt Count 247 (150-450) x10^3/uL MPV 11.5 H (7.5-11.0) fL Gran % 66.3 H (36.0-66.0) % Immature Gran % (Auto) 0.2 (0.00-0.4) % Nucleat RBC Rel Count 0.0 (0.00-0.1) % Eos # (Auto) 0.51 H (0-0.5) x10^3/uL Immature Gran # (Auto) 0.02 (0.00-0.03) x10^3u/L Absolute Lymphs (auto) 1.73 (1.0-4.6) x10^3/uL Absolute Monos (auto) 0.68 (0.0-1.3) x10^3/uL Absolute Nucleated RBC 0.00 (0.00-0.01) x10^3u/L Lymphocytes % 19.5 L (24.0-44.0) % Monocytes % 7.7 (0.0-12.0) % Eosinophils % 5.7 H (0.00-5.0) % Basophils % 0.6 (0.0-0.4) % Absolute Granulocytes 5.89 (1.4-6.9) x10^3/uL Basophils # 0.05 (0-0.4) x10^3/uL Sodium 135 L (137-145) mmol/L Potassium 3.9 (3.5-5.1) mmol/L Chloride 99 (98-107) mmol/L Carbon Dioxide 33 H (22-30) mmol/L Anion Gap 7.2 (5-15) MEQ/L BUN 15 (7-17) mg/dL Creatinine 1.06 H (0.52-1.04) mg/dL Estimated GFR 53.1 ML/MIN Glucose 91 (74-106) mg/dL Calcium 8.6 (8.4-10.2) mg/dL Procalcitonin 0.115 H (0.030-0.080) ng/mL Micro Results-Entire Visit: Microbiology 05/31/22 17:10 Blood Culture Gram Stain - Final Blood Not Reportable Blood Culture - Final NO GROWTH 05/31/22 17:05 Blood Culture Gram Stain - Final Blood Not Reportable Blood Culture - Final NO GROWTH - Radiology Exams Ordered Rad Exams-Entire Visit: Radiology Procedures Category Date Time Status CHEST 1 VIEW (PORTABLE) Routine Exams 06/05/22 08:55 Completed - Procedures and Test Procedures and Tests throughout Hospitalization: Therapy Orders & Screens 05/31/22 18:05 Oxygen Nasal Cannula 2 lpm Comment: 05/31/22 18:08 Incentive Spirometry TID Comment: Diagnosis: Pneumonia/Rib fractures/Transverse process fracture 05/31/22 22:27 Respiratory Therapy Assessment DAILY Comment: Diagnosis: Pneumonia/Rib fractures/Transverse process fracture 06/01/22 00:00 RT Screen per Nursing Assess ONCE Comment: Protocol Order Physician Instructions: Greater than 3 points order RT Admission Screen Reason For Exam: Triggered on Admission Diagnosis: Pneumonia/Rib fractures/Transverse process fracture Diagnosis: Pneumonia/Rib fractures/Transverse process fracture Pneumonia: Yes Home O2: No Asthma: No CHF: No Home CPAP/BIPAP: No Home Nebs/MDI: Yes Total Points: 06/01/22 04:00 PT Screen per Nursing Assess ONCE Comment: Protocol Order Physician Instructions: Greater than 3 points order PT Admission Screenin Reason For Exam: Triggered on Admission Diagnosis: Pneumonia/Rib fractures/Transverse process fracture Open Wound/Cellutlitis/Pressure Ulcers: No Acute Fx/ORIF/Change in wt bearing status: No Severe MUSCULOSKELETAL pain: Yes ADL Dysfunction: Yes Acute CVA w/Hemiparesis/Hemiplegia: No Decreased Functional Mobility/Strength: Yes Sprain/Strain: No Acute Post-op Mobility Dysfunction: No Total Points: 06/01/22 10:00 OT Screen per Nursing Assess ONCE Comment: Protocol Order Physician Instructions: Greater than 3 points order OT Admission Screening Reason For Exam: Triggered on Admission Diagnosis: Pneumonia/Rib fractures/Transverse process fracture Open Wound/Cellutlitis/Pressure Ulcers: No Acute Fx/ORIF/Change in wt bearing status: No Severe MUSCULOSKELETAL pain: Yes ADL Dysfunction: Yes Acute CVA w/Hemiparesis/Hemiplegia: No Decreased Functional Mobility/Strength: Yes Sprain/Strain: No Acute Post-op Mobility Dysfunction: No Total Points: 06/02/22 18:54 Flutter Therapy UD Comment: Diagnosis: Pneumonia/Rib fractures/Transverse process fracture 06/03/22 10:38 PT Eval & Treat ( Order) ONCE Reason for Eval:: PAIN WITH MOVEMENT, NH PLACEMENT Diagnosis: PNEUMONIA, HYPOXIA 06/04/22 11:57 OT Eval and Treat ( Order) ROUTINE Comment: Consulting Provider: Physician Instructions: Reason For Exam: Diagnosis: PNEUMONIA, HYPOXIA Discharge Exam General Appearance: no apparent distress Neurologic Exam: alert, oriented x 3 Respiratory Exam: normal breath sounds, lungs clear, other (chest wall tender), No respiratory distress Cardiovascular Exam: regular rate/rhythm, normal heart sounds Gastrointestinal/Abdomen Exam: soft, No tenderness, No mass Extremity Exam: normal inspection, normal range of motion Skin Exam: normal color, warm, dry Wound Assessment: Skin/Wound Assessment Wound/Incision Assessment Start: 05/31/22 23:32 Text: Status: Active Freq: Q6H Protocol: Document 06/07/22 02:00 RB (Rec: 06/07/22 02:59 RB [id number]) Wound/Incision Assessment Bilateral Thighs Wound Assessment Shift Assessment Comment HEALED BUG BITES Wound Photo Photo Taken No Final Diagnosis/Problem List - Final Discharge Diagnosis/Problem (1) Pneumonia Current Visit: Yes Status: Acute Assessment & Plan: treated with levaquin x 1 week, no further abx required Code(s): J18.9 - PNEUMONIA, UNSPECIFIED ORGANISM (2) Lumbar transverse process fracture Current Visit: Yes Status: Acute Code(s): S32.009A - UNSP FRACTURE OF UNSP LUMBAR VERTEBRA, INIT FOR CLOS FX (3) Ribs, multiple fractures Current Visit: Yes Status: Acute Code(s): S22.49XA - MULTIPLE FRACTURES OF RIBS, UNSP SIDE, INIT FOR CLOS FX - Discharge Disposition: DC TO [facility] Condition: Stable Prescriptions: New Hydrocodone/Acetaminophen [Hydrocodone-Acetamin 5-325 mg] 1 tab PO Q6HPRN PRN #30 tablet MDD 4 PRN Reason: Pain Lidocaine HCl 5% Patch [Lidoderm Patch 5%] 1 patch TOP Q24H #30 patch Continue Pravastatin Sodium 20 mg PO DAILY Aspirin 81 gm Chew [Baby Aspirin 81 mg Chew] 81 mg PO UD PANTOPRAZOLE 40 mg Tablet [Protonix 40MG Tablet] 40 mg PO BID Multivit-Minerals/Folic/Ginkgo [One Daily For Women 50+ Adv Tb] 1 each PO DAILY Polyethylene Glycol 3350 17 gm [Miralax Powder 17GM PACKET] 17 gm PO HS Albuterol/Ipratropium 3ml Neb* [DUONEB 0.5-3 MG/3 ml Neb] 3 ml IH Q6HRT #100 ampul.neb Budesonide/Formoterol Fumarate [Budesonide-Formoterol 160-4.5] 2 puffs IH BID Oxybutynin Chloride 5 mg PO QHS Discontinued Tramadol HCl 50 mg [Ultram 50 mg] 50 mg PO Q6HPRN Prednisone 10 mg [Deltasone 10 mg] 10 mg PO UD Additional Instructions: [facility] REHAB ORDERS: -PT/OT EVAL AND TREAT -REGULAR DIET -3L O2 PER NC AT ALL TIMES -SEE ATTACHED MEDICATION LIST FOR MEDICATION ORDERS. Follow up with: KAYLA RODAS MD [Primary Care Provider] -
[2022-06-07] MEDS: ECOTRIN 81 MG PO SCH (08:44)
[2022-06-07] MEDS: Klor Con PO SCH (08:45)
[2022-06-07] MEDS: THERAGRAN MULTIVITAMIN PO SCH (08:45)
[2022-06-07] MEDS: Protonix 40MG Tablet PO SCH (08:45)
[2022-06-07] MEDS: Lasix 20 MG/2 ML IV SCH ×2 (08:45→08:53)
[2022-06-07] MEDS: ZOCOR 20MG PO SCH (08:45)
[2022-06-07] MEDS: Levofloxacin 500MG/100ML D5W 500 MG/100 ML BAG IV SCH (08:53)
== END 2022-06-07 09:50 | DRG 194 ==
LOC: ED 13:49 → MED SURG 20:30 → OBSVTOIN 06-01 07:33
PROVIDERS: ADMIT General Practice; ATTEND Family Medicine
DX: J18.9 Pneumonia, unspecified organism (principal); S32.009A Unspecified fracture of unspecified lumbar vertebra, initial encounter for closed fracture; S22.49XA Multiple fractures of ribs, unspecified side, initial encounter for closed fracture; W10.9XXA Fall (on) (from) unspecified stairs and steps, initial encounter; E78.00 Pure hypercholesterolemia, unspecified; S70.362A Insect bite (nonvenomous), left thigh, initial encounter; S70.361A Insect bite (nonvenomous), right thigh, initial encounter; Z79.899 Other long term (current) drug therapy; Z20.828 Contact with and (suspected) exposure to other viral communicable diseases
CPT/HCPCS: 0241U; 36415; 71045; 71250; 73110; 74176; 80048; 80053; 83605; 83735; 83880; 84134; 84145; 84484; 85025; 87040; 93005; 94640; 94667; 94668; 94760; 96360; 96365; 96374; 96375; 97110; 97161; 97165; 97530; 99284; G0378; J1170; J1940; J1956; J2405; J3010; A9270-GY

== ENCOUNTER 2023-03-04 14:34 | Emergency (ER) | payer MEDICARE ==
[2023-03-04] MEDS ORDERED: Adacel Vial IM ONE ×2 (14:55→15:01)
--- NOTE | 2023-03-04 15:05 | ERPHSYRPT ---
- History of Present Illness Source: patient Exam Limitations: no limitations Patient Subjective Stated Complaint: pt states I went to open kitchen window and it fell on top of my hand Triage Nursing Assessment: pt ambulated into the er; pt is axo x4; c/o laceration; wound is reinforced with dish towel; skin PDW; no respiratory distress present; hematoma present to dorsal rt hand; hypertensive Physician History: 78 yo WF w R dorsal hand lac/skin tear after window fell on hand. Pain is moderate, and she will need a Tdap. Pt is R handed. Other injuries are denied at this time. Occurred: just prior to arrival Method of Injury: direct blow Quality: constant Severity of Pain-Max: moderate Severity of Pain-Current: moderate Extremities Pain Location: hand: right Modifying Factors: Improves With: movement Associated Symptoms: none Allergies/Adverse Reactions: cephalexin [From Keflex] Allergy (Verified 03/04/23 14:47) Penicillins Allergy (Verified 03/04/23 14:47) Hives Home Medications: Pravastatin Sodium 20 mg PO DAILY 04/21/14 [History] Aspirin 81 gm Chew [Baby Aspirin 81 mg Chew] 81 mg PO UD 04/14/19 [History] Multivit-Minerals/Folic/Ginkgo [One Daily For Women 50+ Adv Tb] 1 each PO DAILY 04/14/19 [History] PANTOPRAZOLE 40 mg Tablet [Protonix 40MG Tablet] 40 mg PO BID 04/14/19 [History] Oxybutynin Chloride 5 mg PO QHS 05/31/22 [History] Tramadol HCl 50 mg [Ultram 50 mg] 1 tab PO QID PRN PRN 12/02/22 [History] Budesonide/Formoterol Fumarate [Symbicort 160-4.5 Mcg Inhaler] 2 puffs IH BID 03/04/23 [History] Hx Tetanus, Diphtheria Vaccination/Date Given: No (unsure) Hx Influenza Vaccination/Date Given: No Hx Pneumococcal Vaccination/Date Given: No Travel Risk - International Travel Have you traveled outside of the country in past 3 weeks: No - Coronavirus Screening Are you exhibiting any of the following symptoms?: No Close contact with a COVID-19 positive Pt in past 14-21 Days: No - Vaccine Status Have you recieved a Covid-19 vaccination: Yes 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: [employer] - Vaccination Dates Date of 2cond Vaccination (if applicable): 2020 - Review of Systems Constitutional: No Symptoms Eyes: No Symptoms Ears, Nose, & Throat: No Symptoms Respiratory: No Symptoms Cardiac: No Symptoms Abdominal/Gastrointestinal: No Symptoms Genitourinary Symptoms: No Symptoms Skin: No Symptoms Neurological: No Symptoms Psychological: No Symptoms Endocrine: No Symptoms Hematologic/Lymphatic: No Symptoms Immunological/Allergic: No Symptoms - Past Medical History Pertinent Past Medical History: Yes Neurological History: No Pertinent History ENT History: Other Cardiac History: High Cholesterol Respiratory History: COPD Endocrine Medical History: No Pertinent History Musculoskeletal History: Arthritis, Fractures, Osteoporosis GI Medical History: GERD, Hernia History: Other Psycho-Social History: Depression Female Reproductive Disorders: No Pertinent History Other Medical History: [place], hiatal hernia. Frequent urination. - Past Surgical History Past Surgical History: Yes Neuro Surgical History: No Pertinent History Cardiac: No Pertinent History Respiratory: No Pertinent History Gastrointestinal: No Pertinent History Genitourinary: No Pertinent History Musculoskeletal: Orthopedic Surgery Female Surgical History: Section, Tubal Ligation Other Surgical History: right wrist repair. ear tubes- recontruction of inner ear R drum - Social History Smoking Status: Former smoker How long have you smoked: 46 years Exposure to second hand smoke: No Drug Use: none Patient Lives Alone: No Significant Family History: no pertinent family hx - Nursing Vital Signs Nursing Vital Signs: Initial Vital Signs Temperature 99.2 F 03/04/23 14:49 Pulse Rate 65 03/04/23 14:49 Respiratory Rate 16 03/04/23 14:49 Blood Pressure 146/61 03/04/23 14:49 O2 Sat by Pulse Oximetry 96 03/04/23 14:49 Pain Scale Pain Intensity 5 Hypertensive - Physical Exam General Appearance: no apparent distress Eyes, Ears, Nose, Throat Exam: normal ENT inspection, TMs normal, pharynx normal, moist mucous membranes Neck Exam: normal inspection, non-tender, supple, full range of motion, No Brudzinski, No Kernig's, No meningismus Cardiovascular/Respiratory Exam: normal breath sounds, regular rate/rhythm, heart sounds normal Abdominal Exam: non-tender, soft Back Exam: normal inspection, normal range of motion, No CVA tenderness Shoulder Exam: normal inspection Elbow/Forearm Exam: normal inspection Wrist Exam: normal inspection Hand Exam: laceration (Large dorsal skin tear/laceration) Neuro/Tendon Exam: normal sensation, normal motor functions, normal tendon functions, responds to pain, no evidence tendon injury, No motor deficit, No sensory deficit Mental Status Exam: alert, oriented x 3, cooperative Skin Exam: normal color, warm, dry SpO2 Interpretation: normal SpO2: 96 O2 Delivery: Room Air Procedures - Laceration/Wound Repair Right Hand Time of Procedure: 15:34 Wound Location: Right (Dorsal hand) Wound Length (cm): 4 Wound's Depth, Shape: flap Wound Explored: clean Irrigated: Yes Hibiclens Prep: Yes Anesthesia: 1% Lidocaine Volume Anesthetic (ccs): 5 Wound Repaired With: sutures (3.0 Ethilon x7) Suture Size/Type: 3-0 Number of Sutures: 7 Layer Closure?: No Sterile Dressing Applied?: Yes - Course Nursing assessment & vital signs reviewed: Yes - Radiology Exams Hand X-ray Interpretation: Discussed w/ radiologist (R hand neg for acute pathology per Rad) Ordered Tests: Active Orders 24 hr Category Date Time Status HAND (MINIMUM 3 VIEWS) Stat Exams 03/04/23 14:55 Completed Medication Summary Discontinued Medications Generic Name Dose Route Start Last Admin Trade Name Freq PRN Reason Stop Dose Admin Diphtheria/Tetanus/Acell Pertussis 0.5 ml 03/04/23 14:55 03/04/23 15:02 Tdap --Diph,Pertuss(Acell),Tet Vac/Pf 0.5 Ml Vial IM 03/04/23 14:56 0.5 ml .ONCE ONE Administration Diphtheria/Tetanus/Acell Pertussis Confirm 03/04/23 15:01 Tdap --Diph,Pertuss(Acell),Tet Vac/Pf 0.5 Ml Vial Administered 03/04/23 15:02 Dose 0.5 ml IM .STK-MED ONE - Progress Progress: improved Progress Note: 03/04/23 15:40 Tdap given 03/04/23 15:43 Nursing note and vital signs reviewed No food or housing insecurities noted Additional history per nursing Counseled pt/family regarding: diagnosis, need for follow-up, rad results Medical Desision Making - Independent Historian Additional History obtained from: Child - Diagnostic Testing Radiological Interpretation: Discussed w/ radiologist - Risk of complications Minimal Risk: Minimal risk of morbidity - Departure Departure Disposition: Home Clinical Impression: Laceration of right hand Condition: Stable Critical Care Time: No Referrals: KAYLA RODAS MD [Primary Care Provider] - Follow up/PCP as directed Instructions: Laceration Repair With Stitches (DC) Additional Instructions: Keep laceration dry for 2 days, then wash 1-2 times a day with soap/water Sutures out in 10 days Watch for signs of infection-increasing redness/increasing pain/any pus/temperature greater than 100.5
--- NOTE | 2023-03-04 15:16 | XRAY ---
Indication: Trauma. Comparison: None 3 view right hand demonstrates osteopenia, mild degenerative changes all IP joints, mild/moderate 1st metacarpal multangular scaphoid degenerative changes, radiocarpal degenerative joint space loss, and old distal radius fracture. No other bony, articular, or soft tissue abnormalities.
[2023-03-04 15:55] VITALS: BP 133/65; PULSE 60; O2SAT 98
== END 2023-03-04 16:00 | disposition home or self-care (01) ==
LOC: ED 14:34
DX: S61.411A Laceration without foreign body of right hand, initial encounter (principal); W23.0XXA Caught, crushed, jammed, or pinched between moving objects, initial encounter; Y92.000 Kitchen of unspecified non-institutional (private) residence as the place of occurrence of the external cause; E78.5 Hyperlipidemia, unspecified; Z79.891 Long term (current) use of opiate analgesic; Z79.899 Other long term (current) drug therapy
CPT/HCPCS: 12002; 73130; 90471; 90715; 99283